=== PATIENT | female | born 1995 | race African-American/Black ===

== ENCOUNTER 2016-08-12 17:36 | Emergency (ER) | payer SELFPAY ==
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
[2016-08-12] MEDS ORDERED: Ondansetron ODT TAB* 4 MG PO ONE (18:35)
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
[2016-08-12] MEDS ORDERED: Ibuprofen TAB* 800 MG PO ONE (19:27)
[2016-08-12 20:27] VITALS: BP 155/84
== END 2016-08-12 20:20 | disposition home or self-care (01) ==
LOC: ED 17:36
DX: S16.1XXA Strain of muscle, fascia and tendon at neck level, initial encounter (principal); S06.0X9A Concussion with loss of consciousness of unspecified duration, initial encounter; V43.62XA Car passenger injured in collision with other type car in traffic accident, initial encounter; Y92.410 Unspecified street and highway as the place of occurrence of the external cause; J45.909 Unspecified asthma, uncomplicated
CPT/HCPCS: 70450; 72040; 99282; A9270-GY

== ENCOUNTER 2017-01-12 11:07 | Emergency (ER) | payer BC, OTHER ==
[2017-01-12 11:13] VITALS: BP 130/76
[2017-01-12] MEDS ORDERED: Ondansetron ODT TAB* 4 MG PO ONE (11:54)
--- NOTE | 2017-01-12 12:04 | UC ---
Ear Complaint HPI - HPI Summary HPI Summary: 21 yo female with the onset of right ear pressure, n& vomiting today mild sinus pressure has felt feverish/mild cough felt tight for about 20 minutes but did not have her inhaler - History of Current Complaint Chief Complaint: UCGeneralIllness Stated Complaint: VOMITING FEVER EAR PAIN SOB ASTHMA Time Seen by Provider: 01/12/17 11:45 Hx Obtained From: Patient Hx Last Menstrual Period: 12/23/16 Onset/Duration: Gradual Onset, Lasting Hours Severity Initially: Mild Severity Currently: Mild Pain Intensity: 4 Pain Scale Used: 0-10 Numeric Alleviating Factors: Nothing Associated Signs/Symptoms: Positive: URI Symptoms - Allergies/Home Medications Allergies/Adverse Reactions: Allergies Allergy/AdvReac Type Severity Reaction Status Date / Time Pollen Extract Allergy Intermediate Sneezing Verified 01/12/17 11:13 Dust Allergy Hives/Diff. Uncoded 01/12/17 11:13 Breathing/I tching PMH/Surg Hx/FS Hx/Imm Hx Respiratory History: Asthma Other History Of: Negative For: Anticoagulant Therapy - Surgical History Surgical History: None - Family History Known Family History: Positive: Cardiac Disease, Hypertension - Social History Alcohol Use: Occasionally Substance Use Type: None Smoking Status (MU): Never Smoked Tobacco Household Exposure Type: Cigarettes Review of Systems Constitutional: Negative Skin: Negative Eyes: Negative ENT: Ear Ache, Sinus Pain/Tenderness Respiratory: Shortness Of Breath - resolve Cardiovascular: Negative Gastrointestinal: Vomiting, Nausea Genitourinary: Negative Motor: Negative Neurovascular: Negative Musculoskeletal: Negative Neurological: Negative Psychological: Negative Is Patient Immunocompromised?: No All Other Systems Reviewed And Are Negative: Yes Physical Exam Triage Information Reviewed: Yes Appearance: Well-Appearing, No Pain Distress, Well-Nourished Vital Signs: Initial Vital Signs Temp 98.0 F 01/12/17 11:09 Pulse 90 01/12/17 11:09 Resp 20 01/12/17 11:09 BP 130/76 01/12/17 11:09 Pulse Ox 100 01/12/17 11:09 Eyes: Positive: Conjunctiva Clear ENT: Positive: Nasal congestion, Nasal drainage, TM bulging - R. Negative: Hearing grossly normal - decreased right, Pharyngeal erythema, Tonsillar swelling, Tonsillar exudate, Trismus, Muffled/hoarse voice Neck: Positive: Supple, Nontender, No Lymphadenopathy Respiratory: Positive: Lungs clear, Normal breath sounds, No respiratory distress Cardiovascular: Positive: RRR, No Murmur Musculoskeletal: Positive: ROM Intact, No Edema Neurological: Positive: Alert Psychological Exam: Normal Skin Exam: Normal Ear Complaint Course/Dx - Differential Dx/Diagnosis Provider Diagnoses: right serous otitis. nausea/vomiting. ?bronchospasm earlier- none at present Discharge - Discharge Plan Condition: Stable Disposition: HOME Prescriptions: Ondansetron TAB* [Zofran Tab*] 4 mg PO Q6H PRN #10 tab PRN Reason: Nausea Prednisone [Deltasone] 40 mg PO DAILY #10 tab Patient Education Materials: Acute Nausea and Vomiting (ED), Serous Otitis Media (ED) Forms: *Work Release Referrals: No Primary Care Phys,NOPCP [Primary Care Provider] - Additional Instructions: you may use your flonase recheck for new or worsening symptoms recheck in 3-4 days if not better
== END 2017-01-12 12:04 | disposition home or self-care (01) ==
LOC: UCEAST 11:07
DX: H65.91 Unspecified nonsuppurative otitis media, right ear (principal); R11.2 Nausea with vomiting, unspecified
CPT/HCPCS: 99212; A9270-GY; G0463

== ENCOUNTER 2017-01-14 10:28 | Emergency (ER) | payer BC ==
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
[2017-01-14] MEDS ORDERED: Albuterol 2.5 MG/3 ML NEB.SOL* (0.083%) INH ONE (12:13)
[2017-01-14 12:48] VITALS: BP 134/73
== END 2017-01-14 13:00 | disposition home or self-care (01) ==
LOC: UCEAST 10:28
DX: J98.01 Acute bronchospasm (principal); R06.02 Shortness of breath; Z77.22 Contact with and (suspected) exposure to environmental tobacco smoke (acute) (chronic)
CPT/HCPCS: 99212; G0463

== ENCOUNTER 2017-07-06 14:57 | Emergency (ER) | payer BC ==
[2017-07-06 15:06] VITALS: BP 146/94
--- NOTE | 2017-07-06 16:04 | RAD ---
HISTORY: Left lower quadrant pain, pelvic pain COMPARISONS: CT dated February 18, 2009 TECHNIQUE: Multiple transverse and longitudinal ultrasound images were obtained of the pelvis using grayscale, color Doppler, and spectral Doppler imaging using the endovaginal transducer. FINDINGS: UTERUS: The uterus measures 8.1 x 3.7 x 5 cm. The uterus is normal in shape, size, contour, and echotexture. ENDOMETRIUM: The endometrial stripe is smooth. The endometrium measures 1.4 cm in thickness. CUL-DE-SAC: There is small amount of free fluid along the fundus of the uterus. RIGHT OVARY: The right ovary measures 3.2 x 1.9 x 2.1 cm. Normal arterial and venous waveforms are identifiable within the ovary on spectral Doppler imaging. LEFT OVARY: The left ovary measures 3.3 x 1.6 x 2.1 cm. Normal arterial and venous waveforms are identifiable within the ovary on spectral Doppler imaging. BLADDER: The bladder is not well visualized. OTHER: None IMPRESSION: 1. NO SONOGRAPHIC FEATURES OF TORSION. PLEASE NOTE THAT PARTIAL OR INTERMITTENT TORSION MAY BE SONOGRAPHICALLY NORMAL. 2. SMALL AMOUNT OF FREE FLUID WITHIN THE PELVIS.
--- NOTE | 2017-07-06 16:48 | RAD ---
Indication: Left lower quadrant pain. CT of the abdomen and pelvis was performed without oral or IV contrast administration. Coronal and sagittal reconstructed images were obtained. Lung bases demonstrate no pleural fluid, nodules or masses. Heart demonstrates no pericardial effusion. The liver is normal in size. No focal lesions or intrahepatic duct dilatation is noted. The gallbladder demonstrates no calcified gallstones. The pancreas demonstrates no mass or pancreatic ductal dilatation. The spleen is normal in size. No adrenal masses are noted. The kidneys demonstrates no hydronephrosis in either kidney. No retroperitoneal lymphadenopathy is noted. CT of the pelvis demonstrates stool throughout the colon. No dilated loops of bowel are noted. No hernia is noted. Aorta and inferior vena cava are unremarkable. No pelvic adenopathy is noted. The bony structures are otherwise unremarkable. IMPRESSION: No abnormal masses or fluid collections are identified. No evidence of obstructive uropathy is noted. No abnormal masses are identified.
--- NOTE | 2017-07-06 19:03 | UC ---
Jaquan Gilbert Nilda, scribed for Saw Hanson MD on 07/06/17 at 1538 . Complaint Female HPI - HPI Summary HPI Summary: This patient is a 22 year old F presenting [place] [facility] [place] friend with a chief complaint of intermittent moderate abd pain (L-sided more than R-sided) for the past month. The patient rates the pain 6/10 in severity. Symptoms alleviated by copious ibuprofen. Patient reports chills, nausea, and COOK. She denies constipation, V/D, dysuria, burning with urination, abnormal vaginal discharge, and loss of appetite. She states pain worsened after taking a course of control to regulate her periods. Pt states she discontinued the control treatment last month due to pain. Pt notes she currently does not have PCP and has been obtaining services from [facility]. PMHx of ovarian cysts which was seen via US 3 years ago. Pt denies PSHx. - History Of Current Complaint Chief Complaint: UCAbdominalPain Stated Complaint: SIDE ABDOMINAL PAIN Time Seen by Provider: 07/06/17 15:10 Hx Obtained From: Patient Hx Last Menstrual Period: 3 wks ago Onset/Duration: Lasting Weeks, Still Present Timing: Intermittent Severity Currently: Moderate Pain Intensity: 6 Pain Scale Used: 0-10 Numeric Aggravating Factor(s): Other - control Alleviating Factor(s): Meds - ibuprofen Associated Signs And Symptoms: Positive: Nausea. Negative: Vaginal Discharge, Vomiting(# Of Episodes =) - Allergies/Home Medications Allergies/Adverse Reactions: Allergies Allergy/AdvReac Type Severity Reaction Status Date / Time Dust Allergy Hives/Diff. Uncoded 07/06/17 15:07 Breathing/I tching PMH/Surg Hx/FS Hx/Imm Hx Respiratory History: Asthma GI/ History: Other Other GI/ History: Ovarian Cyst (2 years ago) Other History Of: Negative For: Anticoagulant Therapy - Surgical History Surgical History: None - Family History Known Family History: Positive: Cardiac Disease, Hypertension - Social History Alcohol Use: Occasionally Substance Use Type: None Smoking Status (MU): Never Smoked Tobacco Household Exposure Type: Cigarettes Review of Systems Constitutional: Chills Gastrointestinal: Abdominal Pain - R-sided and L-sided, Nausea, Other - negative loss of appetite, constipation, vomiting, and diarrhea Genitourinary: Other - negative burning with urination, dysuria, abnormal vaginal discharge Neurological: Headache All Other Systems Reviewed And Are Negative: Yes Physical Exam - Summary Physical Exam Summary: General: well-appearing, no pain distress Skin: warm, color reflects adequate perfusion, dry Head: normal Eyes: EOMI, DYAN ENT: normal Neck: supple, nontender Respiratory: CTA, breath sounds present Cardiovascular: RRR Abdomen: soft, tender LLQ Bowel: present Musculoskeletal: normal, strength/ROM intact Neurological: normal, sensory/motor intact, A&O x3 Psychological: affect/mood appropriate Triage Information Reviewed: Yes Vital Signs: Initial Vital Signs Temp 98.3 F 07/06/17 15:03 Pulse 89 07/06/17 15:03 Resp 12 07/06/17 15:03 BP 146/94 07/06/17 15:03 Pulse Ox 99 07/06/17 15:03 Vital Signs Reviewed: Yes Diagnostics - Radiology CT Abd/Pel Radiology Interpretation Completed By: Radiologist - CT Abd/Pel, per radiologist , reveals no abnormal masses or fluid collections are identified. No evidence of obstructive uropathy is noted. No abnormal masses are identified. Dr. Hanson has reviewed this report. US Pelvic Radiology Interpretation Completed By: Radiologist - US Pelvic, per radiologist , reveals 1. NO SONOGRAPHIC FEATURES OF TORSION. PLEASE NOTE THAT PARTIAL OR INTERMITTENT TORSION MAY BE SONOGRAPHICALLY NORMAL. 2. SMALL AMOUNT OF FREE FLUID WITHIN THE PELVIS. Dr. Hanson has reviewed this report. Re-Evaluation - Re-Evaluation First Eval Re-Evaluation Time: 16:49 Comment: Reviewed imaging results and D/C plan w pt. Complaint Female Dx - Course Course Of Treatment: CT Abd/Pel, per radiologist, reveals no abnormal masses or fluid collections are identified. No evidence of obstructive uropathy is noted. No abnormal masses are identified. Dr. Hanson has reviewed this report. US Pelvic, per radiologist, reveals. 1. NO SONOGRAPHIC FEATURES OF TORSION. PLEASE NOTE THAT PARTIAL OR INTERMITTENT TORSION. MAY BE SONOGRAPHICALLY NORMAL. 2. SMALL AMOUNT OF FREE FLUID WITHIN THE PELVIS. Dr. Hanson has reviewed this report. Medications reviewed. Allergies noted. BP noted and advised to follow up with PCP. DISCUSSED RESULTS WITH PATIENT. F/U PMD/OBGYN; REEVAL HERE OR ED IF WORSE. - Differential Dx/Diagnosis Provider Diagnoses: LEFT SIDED ABDOMINAL/PELVIC PAIN. elevated BP without dx of HTN Discharge - Discharge Plan Condition: Stable Disposition: HOME Patient Education Materials: Pelvic Pain in Women (ED), Abdominal Pain (ED) Referrals: [facility] [Provider Group] [facility] PHYS[facility]IAN REFERRAL [Outside] Additional Instructions: FOLLOW UP WITH YOUR PRIMARY CARE [facility], [phone]. GO TO THE EMERGENCY DEPARTMENT FOR ANY WORSENING OF YOUR CONDITION OR QUESTIONS OR CONCERNS. YOUR BLOOD PRESSURE WAS ELEVATED TODAY; FOLLOW UP WITH YOUR PRIMARY CARE DOCTOR WITHIN ONE WEEK. The documentation as recorded by the Jaquan hughes Nilda accurately reflects the service I personally performed and the decisions made by me, Saw Hanson MD.
[2017-07-08 18:33] LABS: ABS Basophils 0 10^3/ul (0-0.2); ABS Eosinophils 0.1 10^3/ul (0-0.6); ABS Lymphocytes 1.9 10^3/ul (1.0-4.8); ABS Monocytes 0.6 10^3/ul (0-0.8); ABS Neutrophils 5.8 10^3/ul (1.5-7.7); ABS Nucleated RBC 0 10^3/ul; Eosinophil % 1.1 % (0-6); Hematocrit 32 % (35-47); Hemoglobin 10.8 g/dl (12.0-16.0); Lymphocyte % 22.4 % (25-47); Mean Corpuscular HGB Conc 33 g/dl (31-36); Mean Corpuscular Hemoglobin 27 pg (27-31); Mean Corpuscular Volume 82 fL (80-97); Mean Platelet Volume 10 um3 (7.4-10.4); Nucleated Red Blood Cells % 0; Platelet Count 196 10^3/ul (150-450); Red Blood Count 3.95 10^6/ul (4.0-5.4); Red Cell Distribution Width 14 % (10.5-15); White Blood Count 8.4 10^3/ul (3.5-10.8)
== END 2017-07-06 17:12 | disposition home or self-care (01) ==
LOC: UCEAST 14:57
DX: R10.9 Unspecified abdominal pain (principal); R10.2 Pelvic and perineal pain; R03.0 Elevated blood-pressure reading, without diagnosis of hypertension; J45.909 Unspecified asthma, uncomplicated
CPT/HCPCS: 36415; 74176; 76830; 80053; 81003; 83690; 84702; 85025; 86140; 99211; G0463

== ENCOUNTER 2017-09-10 12:51 | Emergency (ER) | payer BC, OTHER ==
[2017-09-10 13:11] VITALS: BP 136/76
[2017-09-10] MEDS ORDERED: Ibuprofen TAB* 800 MG PO ONE (13:16)
[2017-09-10] MEDS ORDERED: Acetaminophen TAB* 325 MG PO ONE (13:24)
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
== END 2017-09-10 14:23 | disposition home or self-care (01) ==
LOC: UCEAST 12:51
DX: S93.401A Sprain of unspecified ligament of right ankle, initial encounter (principal); Y04.0XXA Assault by unarmed brawl or fight, initial encounter; Y93.9 Activity, unspecified; Y92.219 Unspecified school as the place of occurrence of the external cause; Y99.0 Civilian activity done for income or pay; J45.909 Unspecified asthma, uncomplicated; Z87.820 Personal history of traumatic brain injury
CPT/HCPCS: 84702; 99212; A9270-GY; G0463

== ENCOUNTER 2018-02-01 14:09 | Emergency (ER) | payer BC ==
--- NOTE | 2018-02-01 14:50 | ED ---
Lower Extremity - HPI Summary HPI Summary: A 22 y/o F, who is 23 weeks with her first child, presents to ED with c /o bilat LE numbness onset five days ago. The numbness is described as "tingling " and "pinching." She denies trauma. Associated sx: back pain. The back pain is rated as 5 out of 10. Denies fever, chills, urinary and bowel sx. She saw her OB-CHAIN TESTING MACHINE OPERATOR three days ago who told her to monitor the numbness. Today at work, pt lost her balance and fell onto her knees. - History of Current Complaint Chief Complaint: EDExtremityLower Stated Complaint: LEG NUMBNESS Time Seen by Provider: 02/01/18 14:33 Hx Obtained From: Patient Hx Last Menstrual Period: 08/20/2017 Onset of Pain: Days Onset/Duration: Still Present Severity Initially: Mild Severity Currently: Mild Pain Intensity: 0 Pain Scale Used: 0-10 Numeric Timing: Constant Location: Is Discrete @ - bilat LE Associated Signs And Symptoms: Positive: Other - back pain. Negative: Fever - Allergies/Home Medications Allergies/Adverse Reactions: Allergies Allergy/AdvReac Type Severity Reaction Status Date / Time Dust Allergy Hives/Diff. Uncoded 02/01/18 14:42 Breathing/I tching PMH/Surg Hx/FS Hx/Imm Hx Previously Healthy: Yes Endocrine/Hematology History: Denies: Hx Anticoagulant Therapy, Hx Blood Disorders, Hx Diabetes, Hx Thyroid Disease, Hx Unexplained Bleeding Cardiovascular History: Denies: Hx Hypertension Respiratory History: Reports: Hx Asthma, Hx Sleep Apnea Denies: Hx Chronic Obstructive Pulmonary Disease (COPD), Other Respiratory Problems/Disorders GI History: Denies: Hx Ulcer Musculoskeletal History: Reports: Other Musculoskeletal History - lumbar herniated disc Neurological History: Reports: Other Neuro Impairments/Disorders - concussions x 4 - Immunization History Date of Tetanus Vaccine: 2014 Date of Influenza Vaccine: 2013 Immunizations Up to Date: Yes Infectious Disease History: No Infectious Disease History: Denies: Hx Clostridium Difficile, Hx Hepatitis, Hx Human Immunodeficiency Virus (HIV), Hx of Known/Suspected MRSA, Hx Shingles, Hx Tuberculosis, Hx Known/ Suspected VRE, Hx Known/Suspected VRSA, History Other Infectious Disease, Traveled Outside the [place] in Last 30 Days - Family History Known Family History: Positive: Cardiac Disease, Hypertension - Social History Occupation: Employed Full-time Lives: With Family Alcohol Use: Occasionally Hx Substance Use: No Substance Use Type: Reports: None Hx Tobacco Use: No Smoking Status (MU): Never Smoked Tobacco Review of Systems Negative: Fever Negative: Cough Musculoskeletal: Other - pos: back pain Positive: Numbness - bilat LE All Other Systems Reviewed And Are Negative: Yes Physical Exam - Summary Physical Exam Summary: VITAL SIGNS: Reviewed. GENERAL: Patient is a well-developed and nourished FEMALE who is lying comfortable in the stretcher. Patient is not in any acute respiratory distress. HEAD AND FACE: No signs of trauma. No ecchymosis, hematomas or skull depressions. No sinus tenderness. EYES: PERRLA, EOMI x 2, No injected conjunctiva, no nystagmus. EARS: Hearing grossly intact. Ear canals and tympanic membranes are within normal limits. MOUTH: Oropharynx within normal limits. NECK: Supple, trachea is midline, no adenopathy, no JVD, no carotid bruit, no c- spine tenderness, neck with full ROM. CHEST: Symmetric, no tenderness at palpation LUNGS: Clear to auscultation bilaterally. No wheezing or crackles. CVS: Regular rate and rhythm, S1 and S2 present, no murmurs or gallops appreciated. Good capillary refill. ABDOMEN: Soft, non-tender. No signs of distention. No rebound, no guarding, and no masses palpated. Bowel sounds are normal. 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 Good sphincter tone. No hemorrhoids. EXTREMITIES: FROM in all major joints, no edema, no cyanosis or clubbing. Good tendon reflexes. Good sensation. NEURO: Alert and oriented x 3. No acute neurological deficits. Speech is normal and follows commands. SKIN: Dry and warm Triage Information Reviewed: Yes Vital Signs On Initial Exam: Initial Vitals Temp Pulse Resp BP Pulse Ox 99.4 F 96 16 130/73 100 02/01/18 14:37 02/01/18 14:37 02/01/18 14:37 02/01/18 14:37 02/01/18 14:37 Vital Signs Reviewed: Yes Diagnostics - Vital Signs Vital Signs Temp Pulse Resp BP Pulse Ox 02/01/18 14:37 99.4 F 96 16 130/73 100 - Laboratory Result Diagrams: 02/01/18 15:53 02/01/18 15:53 Lab Statement: Any lab studies that have been ordered have been reviewed, and results considered in the medical decision making process. Re-Evaluation - Re-Evaluation 1 Re-Evaluation Time: 15:26 Change: Unchanged Comment: Telling pt that the neuro consult may be a little while and she stated that is OK. 2 Re-Evaluation Time: 17:31 Change: Unchanged Comment: Discussing Dr. Lemon's recommendations and plans for dispo. Lower Extremity Course/Dx - Course Assessment/Plan: A 22 y/o F, who is 23 weeks with her first child, presents to ED with c/o bilat LE numbness onset five days ago. The numbness is described as "tingling" and "pinching." She denies trauma. Associated sx: back pain. The back pain is rated as 5 out of 10. Denies fever, chills, urinary and bowel sx. She saw her OB-CHAIN TESTING MACHINE OPERATOR three days ago who told her to monitor the numbness. Today at work, pt lost her balance and fell onto her knees. Blood work without any significant abnormality except for hemoglobin 11.1 hematocrit 34. My physical exam did not show any deep tendon reflex abnormality, the patient has good pulses good capillary refill, she has good sensation and good strength. However because the patient is complaining of back pain and she is I discussed my physical exam and findings with Dr. Lemon from neurology who agreed to consult for this patient. That his examination assessment and review of the lab tests he doesn't recommend any made images at this point because the patient's physical exam was not abnormal. And since the patient is he doesn't recommend any images at this point. He discussed the benefits and risks of admitted the patient to the hospital for observation and the patient declined admission. She prefers to follow up with the primary care physician and Percocet as an outpatient setting. Therefore the patient will be discharged home with follow-up with primary care physician. She was given instructions to return to the emergency department if she develops any weakness, dropfoot, increasing back pain, or any other symptoms. The patient understands and agrees. - Diagnoses Differential Diagnosis/HQI/PQRI: Positive: Compartment Syndrome, Sciatica, Sprain, Strain Provider Diagnoses: Radiculopathy, Neuropathy - Physician Notifications Discussed Care Of Patient With: Oleksandr Lemon - neuro Time Discussed With Above Provider: 15:20 Instructed by Provider To: MD Will See In ED - Recommends no imaging due to at this point. At 1700, Dr. Lemon recommends that pt be D/C and follow up at his office. He does not recommend imaging at this point. Discharge - Sign-Out/Discharge Documenting (check all that apply): Patient Departure - DC - Discharge Plan Condition: Stable Disposition: HOME Patient Education Materials: Lumbar Radiculopathy (ED) Forms: *Work Release Referrals: Oleksandr Lemon MD [Medical Doctor] - 2 Days Joce Arguelles MD [Primary Care Provider] - 2 Days Additional Instructions: Establish with Dr. Lemon, neuro, within 2-3 days. Follow up with your primary care provider in 2-3 days. Please return to the Emergency Department if you experience new or worsening symptoms. - Billing Disposition and Condition Condition: STABLE Disposition: Home - Attestation Statements Document Initiated by Scribe: Yes Documenting Scribe: Sunny Covington Provider For Whom Scribe is Documenting (Include Credential): Dr. Joce Last MD Scribe Attestation: I, Sunny Covington, scribed for Dr. Joce Last MD on 02/02/18 at 1824. Scribe Documentation Reviewed: Yes Provider Attestation: The documentation as recorded by the Sunny hughes accurately reflects the service I personally performed and the decisions made by me, Dr. Joce Last MD
[2018-02-01 15:47] LABS: Urine Appearance Cloudy; Urine Blood Negative (Negative); Urine Color Yellow; Urine Ketones Negative (Negative); Urine Protein Negative (Negative); Urine Specific Gravity 1.008 (1.010-1.030); Urine Urobilinogen Negative (Negative)
[2018-02-01 16:17] LABS: ABS Basophils 0 10^3/ul (0-0.2); ABS Eosinophils 0.1 10^3/ul (0-0.6); ABS Lymphocytes 1.5 10^3/ul (1.0-4.8); ABS Monocytes 0.7 10^3/ul (0-0.8); ABS Neutrophils 9.1 10^3/ul (1.5-7.7); ABS Nucleated RBC 0 10^3/ul; Eosinophil % 0.5 % (0-6); Hematocrit 34 % (35-47); Hemoglobin 11.1 g/dl (12.0-16.0); Lymphocyte % 12.8 % (25-47); Mean Corpuscular HGB Conc 33 g/dl (31-36); Mean Corpuscular Hemoglobin 30 pg (27-31); Mean Corpuscular Volume 91 fL (80-97); Mean Platelet Volume 9.6 um3 (7.4-10.4); Nucleated Red Blood Cells % 0.1; Platelet Count 164 10^3/ul (150-450); Red Cell Distribution Width 14 % (10.5-15); White Blood Count 11.4 10^3/ul (3.5-10.8)
[2018-02-01 16:35] LABS: EGFR Non-African American 121.5 (>60)
[2018-02-01 17:35] VITALS: BP 130/78
--- NOTE | 2018-02-01 22:06 | CONS ---
NEUROLOGY CONSULTATION REPORT: DATE OF CONSULT: 02/01/18 - EMERGENCY DEPT. CONSULTING PROVIDER: Dr. Last. REASON FOR CONSULT: Low back pain and bilateral lower extremity numbness. CHIEF COMPLAINT: Right more than left leg numbness. HISTORY OF PRESENT ILLNESS: Ms. Frieda Nieto is a 22-year-old left-handed female, who is 23 weeks into her first , who stated that she has had a 1-week history of numbness from the waist down. Today at work, the patient stated that her legs went suddenly numb and had to kneel down to the ground. Certain back movements can trigger the numbness. If she gets up and walks around, the numbness gets worse. She did not hit her head or lose consciousness. Since last Thursday, she has had intermittent leg tingling and numbness sensation, which can affect different areas of the legs. She denied any weakness. She denied any bowel or bladder impairment. She denied any upper extremity symptoms. She denied any recent GI illnesses. She did receive the flu shot last Thursday, but the symptoms started prior to the flu shot. The patient also began having back pain at 18 weeks during her . The pain is achy, constant, stays in the back, Tylenol does not work. She has not had any imaging studies. The patient denied any focal weakness or paresthesias. She denied any headaches , visual disturbance, swallowing difficulty. PAST MEDICAL HISTORY: Asthma. PAST SURGICAL HISTORY: None. MEDICATIONS: Albuterol inhaler as needed. ALLERGIES: APPLES, BANANA, POLLEN, and DUST. FAMILY HISTORY: Her father had multiple knee surgeries. Mother is healthy. SOCIAL HISTORY: She denied any tobacco or alcohol use. 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 REVIEW OF SYSTEMS: A 14-point review of systems was otherwise negative except for what was mentioned in the HPI. PHYSICAL EXAM: Vitals: Temperature of 99.4, pulse rate 95, oxygen saturation of 100, blood pressure 149/82. General Examination: The patient is resting comfortably, laughing with examiner and her mother, who is at bedside. She does not appear in any acute distress. Dr. Last reported that he has done a rectal examination, which her rectal tone is normal. Head is normocephalic, atraumatic. Spurling sign negative. Eyes: Conjunctivae/corneas are clear. Neck is supple and symmetrical with no carotid bruits. Lungs are clear to auscultation bilaterally, nonlabored breathing. Cardiovascular: Regular rate and rhythm with normal S1, S2. Extremities: Normal range of motion with no cyanosis. Skin: No skin lesions or laceration. Psych: Affect is broad and normal mood. She is easy to establish rapport. Neurological Examination: Mental status; awake, alert, oriented to person, place and time, and general circumstance. Speech and language including expression, naming, and repetition were all assessed and found to be normal. Cranial nerves: Normal confrontation testing bilaterally. Pupils are mid range and reactive to light. Normal consensual response. Sensation is intact on the forehead, cheeks, and jaw region bilaterally. She has no facial droop. She is able to hear throughout the history process, symmetrical palate elevation. Normal strength against resistance. Tongue is symmetrical and midline with no atrophy or fasciculation. Motor Examination: No abnormal movement, no pronator drift. Normal bulk and tone throughout. No fasciculation. Neck extension is 5. Shoulder range of motion is full. Shoulder abduction, elbow extension, and wrist flexion and extension, finger flexion and extension, and abduction, hip flexion, abduction, knee flexion and extension, ankle dorsiflexion, plantar flexion, great toe extensions are 5/5 bilaterally. Reflexes, Right/Left: Brachioradialis 2/2, biceps 2/2, triceps 2/2, patella 1/2, ankle 1/2, plantar flexor/flexor. Sensation is reduced to light touch and pinprick on the posterior aspect of the right leg on the calf and the hamstring region when compared to the left. She has normal vibratory sensation 15 seconds on the right, 16 seconds on the left, and proprioception at the great toes. Coordination: Normal [id number] and rapid alternating movement. Gait: Wide-based, no ataxia. The patient has lumbar lordosis when ambulating. DIAGNOSTIC STUDIES/LAB DATA: Labs: WBC of 11,000, hemoglobin of 11, hematocrit 34%. Sodium 136, potassium 4.0, chloride 106, carbon dioxide 23, calcium 9.2, C- reactive protein is 10.5. Urinalysis is unremarkable with no evidence of pyuria. ASSESSMENT AND PLAN: This is a pleasant 22-year-old female who is 23 weeks female, who presented with chronic low back pain and subacute numbness of the lower extremity. Her numbness is patchy and is mostly in a distribution of the sciatic nerve on the right. I suspect the patient has low back pain and possible lumbosacral radiculopathy, which is a common symptom during . Contributing factors include exaggerated lumbar lordosis and postural stress on direct pressure from the growing uterus, as she informed me today that her uterus size is at 26 weeks rather than actually 23 weeks. I recommend conservative management with analgesics, possible physical therapy, heating at the low back, and modification of activity. I do not suspect the patient has GBS given the lack of asymmetrical ascending paresthesias given, symptoms are triggered with symptoms, and she has retained reflexes in the lower extremity. She has no focal motor weakness. I did inform the patient that if she continues to have symptoms and it is getting worse or she develops any weakness, she should come back to the ER immediately for further evaluation. If she does return, we can do MRIs of the lumbar spine to evaluate for disk herniation at L5-S1 level as well as we can do an EMG/nerve conduction study. The patient is not interested in any analgesics or steroids, and I agreed with her given that she is . She will take off from work for a few days until her back and the symptoms recover. TIME SPENT: I spent a total of 70 minutes of which more than 50% was spent obtaining history, reviewing the medical chart, examining the patient, and discussing the treatment plan and prognosis as mentioned above. [id number]/CPS #: [id number] MTDD
== END 2018-02-01 17:34 | disposition home or self-care (01) ==
LOC: ED 14:09
DX: M54.10 Radiculopathy, site unspecified (principal); G62.9 Polyneuropathy, unspecified; M54.9 Dorsalgia, unspecified
CPT/HCPCS: 36415; 80053; 81003; 82607; 84443; 85025; 86140; 99283

== ENCOUNTER 2018-03-08 16:08 | Emergency (ER) | payer BC ==
[2018-03-08 18:18] LABS: ABS Basophils 0 10^3/ul (0-0.2); ABS Eosinophils 0.1 10^3/ul (0-0.6); ABS Lymphocytes 1.4 10^3/ul (1.0-4.8); ABS Monocytes 0.7 10^3/ul (0-0.8); ABS Neutrophils 7.8 10^3/ul (1.5-7.7); ABS Nucleated RBC 0 10^3/ul; Eosinophil % 0.9 % (0-6); Hematocrit 32 % (35-47); Hemoglobin 11.1 g/dl (12.0-16.0); Lymphocyte % 14.2 % (25-47); Mean Corpuscular HGB Conc 35 g/dl (31-36); Mean Corpuscular Hemoglobin 31 pg (27-31); Mean Corpuscular Volume 90 fL (80-97); Mean Platelet Volume 9.6 fL (7.4-10.4); Nucleated Red Blood Cells % 0.1; Platelet Count 146 10^3/ul (150-450); Red Blood Count 3.57 10^6/ul (4.00-5.40); Red Cell Distribution Width 14 % (10.5-15)
[2018-03-08 18:29] LABS: EGFR Non-African American 123.9 (>60)
[2018-03-08 20:31] LABS: Urine Appearance Cloudy; Urine Blood Negative (Negative); Urine Color Amber; Urine Ketones Trace (Negative); Urine Protein Negative (Negative); Urine Red Blood Cell Absent (Absent); Urine Specific Gravity 1.015 (1.010-1.030); Urine Urobilinogen Negative (Negative); Urine White Blood Cell Trace(0-5/hpf) (Absent)
[2018-03-08] MEDS ORDERED: Morphine VIAL* 10 MG/ML 1 ML VIAL IM ONE (20:32)
[2018-03-08] MEDS ORDERED: Promethazine TAB* 25 MG PO ONE (20:33)
--- NOTE | 2018-03-08 20:37 | ED ---
Back Pain - HPI Summary HPI Summary: Patient 28.4 weeks complains of constant low back pain. Patient currently on full bedrest for past week due to position of daily affecting sciatic nerve. Placed on bedrest by RABBET OPERATOR and neurology. History of 2 falls due to legs giving out. Sent by RABBET OPERATOR a neurologist in the ED for evaluation. Back pain described as intermittent, sharp, achy, worse with lying down. Tylenol provides no relief, no denies heat or cold. Patient states 7/10 back pain. Denies any new trauma, fever, cough, sore throat, CP, SOB, N/V/D, abdominal pain, change in urine, change in BM. Medical history is asthma. - History of Current Complaint Chief Complaint: EDBackInjuryPain Stated Complaint: 32 WKS PREG/BACK PAIN Time Seen by Provider: 03/08/18 17:29 Hx Obtained From: Patient Hx Last Menstrual Period: 08/20/2017 Onset/Duration: Gradual Onset Onset/Duration: Started Days Ago Timing: Intermittent Back Pain Location: Is Discrete @ Severity Initially: Moderate Severity Currently: Moderate Pain Intensity: 7 Pain Scale Used: 0-10 Numeric Character: Sharp, Dull Aggravating Symptom(s): Movement, Walking Alleviating Symptom(s): Rest Associated Signs And Symptoms: Positive: Negative - Allergies/Home Medications Allergies/Adverse Reactions: Allergies Allergy/AdvReac Type Severity Reaction Status Date / Time environmental Allergy Hives/Diff. Uncoded 03/08/18 16:14 Breathing/I tching PMH/Surg Hx/FS Hx/Imm Hx Endocrine/Hematology History: Denies: Hx Anticoagulant Therapy, Hx Blood Disorders, Hx Diabetes, Hx Thyroid Disease, Hx Unexplained Bleeding Cardiovascular History: Denies: Hx Hypertension, Hx Pacemaker/ICD Respiratory History: Reports: Hx Asthma, Hx Sleep Apnea Denies: Hx Chronic Obstructive Pulmonary Disease (COPD), Other Respiratory Problems/Disorders GI History: Denies: Hx Ulcer Musculoskeletal History: Reports: Other Musculoskeletal History - lumbar herniated disc Sensory History: Denies: Hx Hearing Aid Neurological History: Reports: Other Neuro Impairments/Disorders - concussions x 4 Psychiatric History: Reports: Hx Panic Disorder - Immunization History Date of Tetanus Vaccine: 2014 Date of Influenza Vaccine: 2013 Infectious Disease History: No Infectious Disease History: Denies: Hx Clostridium Difficile, Hx Hepatitis, Hx Human Immunodeficiency Virus (HIV), Hx of Known/Suspected MRSA, Hx Shingles, Hx Tuberculosis, Hx Known/ Suspected VRE, Hx Known/Suspected VRSA, History Other Infectious Disease, Traveled Outside the [place] in Last 30 Days - Family History Known Family History: Positive: Cardiac Disease, Hypertension - Social History Alcohol Use: None Hx Substance Use: No Substance Use Type: Reports: None Hx Tobacco Use: No Smoking Status (MU): Never Smoked Tobacco Review of Systems Constitutional: Negative Eyes: Negative ENT: Negative Cardiovascular: Negative Respiratory: Negative Gastrointestinal: Negative Genitourinary: Negative Musculoskeletal: Other Skin: Negative Neurological: Negative Psychological: Normal All Other Systems Reviewed And Are Negative: Yes Physical Exam - Summary Physical Exam Summary: PMS intact distally on bilateral lower extremities. Normal motor function of bilateral lower extremities. Patient able to flex and extend of bilateral hips , bilateral knees and ankles. Extension against resistance normal. No pain with palpation of lower back. Triage Information Reviewed: Yes Vital Signs On Initial Exam: Initial Vitals Temp Pulse Resp BP Pulse Ox 98.5 F 96 16 159/77 99 03/08/18 16:10 03/08/18 16:10 03/08/18 16:10 03/08/18 16:10 03/08/18 16:10 Vital Signs Reviewed: Yes Appearance: Positive: Well-Appearing Skin: Positive: Warm Head/Face: Positive: Normal Head/Face Inspection Eyes: Positive: Normal Neck: Positive: Supple Respiratory/Lung Sounds: Positive: Clear to Auscultation Cardiovascular: Positive: Normal Abdomen Description: Positive: Nontender Musculoskeletal: Positive: Normal Neurological: Positive: Normal Psychiatric: Positive: Normal AVPU Assessment: Alert - Leslie Coma Scale Best Eye Response: 4 - Spontaneous Best Motor Response: 6 - Obeys Commands Best Verbal Response: 5 - Oriented Coma Scale Total: 15 Diagnostics - Vital Signs Vital Signs Temp Pulse Resp BP Pulse Ox 03/08/18 19:00 108 99 03/08/18 18:45 96 125/77 98 03/08/18 18:16 109 99 03/08/18 18:15 99 114/74 100 03/08/18 16:10 98.5 F 96 16 159/77 99 - Laboratory Lab Results: Lab Results 03/08/18 03/08/18 03/08/18 Range/Units 18:02 18:02 18:15 WBC 10.0 (3.5-10.8) 10^3/ul RBC 3.57 L (4.00-5.40) 10^6/ul Hgb 11.1 L (12.0-16.0) g/dl Hct 32 L (35-47) % MCV 90 (80-97) fL MCH 31 (27-31) pg MCHC 35 (31-36) g/dl RDW 14 (10.5-15) % Plt Count 146 L (150-450) 10^3/ul MPV 9.6 (7.4-10.4) fL Neut % (Auto) 77.9 (38-83) % Lymph % (Auto) 14.2 L (25-47) % [place] % (Auto) 6.7 (0-7) % Eos % (Auto) 0.9 (0-6) % Baso % (Auto) 0.3 (0-2) % Absolute Neuts (auto) 7.8 H (1.5-7.7) 10^3/ul Absolute Lymphs (auto) 1.4 (1.0-4.8) 10^3/ul Absolute Monos (auto) 0.7 (0-0.8) 10^3/ul Absolute Eos (auto) 0.1 (0-0.6) 10^3/ul Absolute Basos (auto) 0 (0-0.2) 10^3/ul Absolute Nucleated RBC 0 10^3/ul Nucleated RBC % 0.1 Sodium 135 (135-145) mmol/L Potassium 3.7 (3.5-5.0) mmol/L Chloride 106 (101-111) mmol/L Carbon Dioxide 23 (22-32) mmol/L Anion Gap 6 (2-11) mmol/L BUN 3 L (6-24) mg/dL Creatinine 0.60 (0.51-0.95) mg/dL Est GFR ( Amer) 149.9 (>60) Est GFR (Non-Af Amer) 123.9 (>60) BUN/Creatinine Ratio 5.0 L (8-20) Glucose 100 (70-100) mg/dL Calcium 9.0 (8.6-10.3) mg/dL Total Bilirubin 0.20 (0.2-1.0) mg/dL AST 11 L (13-39) U/L ALT 10 (7-52) U/L Alkaline Phosphatase 74 (34-104) U/L C-Reactive Protein 12.14 H (<8.01) mg/L Total Protein 6.1 L (6.4-8.9) g/dL Albumin 3.2 (3.2-5.2) g/dL Globulin 2.9 (2-4) g/dL Albumin/Globulin Ratio 1.1 (1-3) Urine Color [place] Urine Appearance Cloudy Urine pH 7.0 (5-9) Ur Specific [place] 1.015 (1.010-1.030) Urine Protein Negative (Negative) Urine Ketones Trace A (Negative) Urine Blood Negative (Negative) Urine Nitrate Negative (Negative) Urine Bilirubin Negative (Negative) Urine Urobilinogen Negative (Negative) Ur Leukocyte Esterase Trace A (Negative) Urine WBC (Auto) Trace(0-5/hpf) (Absent) Urine RBC (Auto) Absent (Absent) Ur Squamous Epith Cells Present A (Absent) Urine Bacteria Absent (Absent) Urine Glucose Negative (Negative) Result Diagrams: 03/08/18 18:02 03/08/18 18:02 Lab Statement: Any lab studies that have been ordered have been reviewed, and results considered in the medical decision making process. Back Pain Course/Dx - Course Course Of Treatment: Patient 28.4 weeks complains of constant low back pain. Patient currently on full bedrest for past week due to position of daily affecting sciatic nerve. Placed on bedrest by RABBET OPERATOR and neurology. History of 2 falls due to legs giving out. Sent by RABBET OPERATOR a neurologist in the ED for evaluation. Back pain described as intermittent, sharp, achy, worse with lying down. Tylenol provides no relief, no denies heat or cold. Patient states 7/10 back pain. Denies any new trauma, fever, cough, sore throat, CP, SOB, N/V/D, abdominal pain, change in urine, change in BM. Medical history is asthma. Physical exam: PMS intact distally on bilateral lower extremities. Normal motor function of bilateral lower extremities. Patient able to flex and extend of bilateral hips, bilateral knees and ankles. Extension against resistance normal. No pain with palpation of lower back. Refused narcotic pain medication. Neuro consult on 02/01/[address] Lemon recommended conservative management unless symptoms worsen. Note states that should patient symptoms worsen she should come to the ED for probably further evaluation and MRI of the L-spine. MRI of lumbar spine showed no acute changes. Upon hearing results Patient wanted to be discharged. - Diagnoses Provider Diagnoses: Back pain affecting Discharge - Sign-Out/Discharge Documenting (check all that apply): Patient Departure - Discharge Plan Condition: Stable Disposition: HOME Patient Education Materials: Acute Low Back Pain (ED), Lumbar Radiculopathy (ED ) Referrals: Joce Arguelles MD [Primary Care Provider] - Additional Instructions: Follow up with your RABBET OPERATOR and your neurologist. Return to the ED for any new or worsening symptoms - Billing Disposition and Condition Condition: STABLE Disposition: Home
[2018-03-08 20:50] VITALS: BP 125/81
== END 2018-03-08 20:49 | disposition home or self-care (01) ==
LOC: ED 16:08
DX: M54.5 Low back pain (principal); Z34.93 Encounter for supervision of normal pregnancy, unspecified, third trimester; Z3A.28 28 weeks gestation of pregnancy
CPT/HCPCS: 36415; 72148; 80053; 81003; 81015; 85025; 86140; 87086; 96372; 99282; J2270

== ENCOUNTER 2018-05-25 09:51 | Inpatient (IN) | payer BC ==
[2018-05-25] MEDS ORDERED: Buffered Lidocaine 1% SYRIN* 1 ML/SYRINGE INTRADERM ONE (10:17)
--- NOTE | 2018-05-25 10:22 | HP ---
General Information - Reason for Visit induction of labor, FT, polyhydramnios - General Information Maternal Age: 22 Grav: 2 Para: 0 - 0010 SAB: 1 IEA: 0 Estimated Due Date: 05/27/18 Determined By: LMP Maternal Blood Type and Rh: A Positive - Results this Serology/RPR Result: Non-Reactive Rubella Result: Immune HBsAg Result: Negative HIV Result: Negative GBS Culture Result: Negative Past Medical History Pertinent Past Medical History: See Records - bulging disc with bilateral leg numbness Pertinent Past Surgical History: None Pertinent Family History: See Records - HTN, high chol, blood clots, DM, Br CA - Antepartal Records Antepartal Records: Reviewed, Complicated by: - bilateral choroid plexus cysts; BMI 42, mild polyhydramnios Review of Systems Constitutional: Comfortable CV Complaint: No Respiratory: Shortness of Breath: No Gastrointestinal: No Nausea/Vomiting, Normal Bowel Movement Genitourinary: No Dysuria, No Bleeding, No Leaking Fluid Musculoskeletal: Contractions Neurological: No Headache, No Visual Changes Movement: Normal Exam Allergies/Adverse Reactions: Allergies metronidazole Allergy (Verified 05/20/18 20:18) Hives environmental Allergy (Uncoded 05/20/18 20:18) Hives/Diff.Breathing/Itching 141/83, P:103. O2:99% - Measurements Height: 6 ft Weight: 323 lb Body Mass Index (BMI): 43.8 Pre- Weight: 304 lb - Exam Breast: Breast Exam Deferred CVA: No CVA Tenderness Extremities: No Edema Heart: Normal Rhythm/Heart Sounds HEENT: No Significant Findings Lungs: Clear Bilaterally Rectal: Rectal Exam Deferred Reflexes: DTR 2+ Thyroid: No Thyromegaly - Abdominal Exam Abdomen Exam: Fundal Height Consistent with Dates - Ultrasound/Biophysical Profile Ultrasound Status: Not Done Targeted Exam Findings Estimated Weight: 9lbs Cervical Exam: 1cm Effacement: 60% Station: -2 Presenting Part: Vertex Membrane Status: Intact Bleeding/Discharge: None EFM Findings - External Monitor Findings Baseline Heart Rate: 145 External Monitor Findings: Accelerations Present, No Pattern of Variable or Late Decelerations, Variability Moderate, Baseline Stable Contractions: Regular, Mild, 45-90 Seconds Assessment/Plan - Assessment 23 y.o. polyhydramnios, FT - Obstetrical Risk Factors Obstetrical Risk Factors: Obesity Risk Factors Comment: polyhydramnios - Plan Plan: Induction - Date/Time of Admission Date of Admission: 05/25/18 Time of Admission: 10:30
[2018-05-25] MEDS: Lactated Ringers 1000 ML Bag* 1,000 ML IV ONE ×2 (11:34→11:35)
[2018-05-25 11:35] LABS: ABS Basophils 0 10^3/ul (0-0.2); ABS Eosinophils 0 10^3/ul (0-0.6); ABS Monocytes 0.5 10^3/ul (0-0.8); ABS Neutrophils 6.5 10^3/ul (1.5-7.7); ABS Nucleated RBC 0 10^3/ul; Eosinophil % 0.3 %; Hematocrit 33 % (35-47); Lymphocyte % 12.3 %; Mean Corpuscular HGB Conc 34 g/dl (31-36); Mean Corpuscular Hemoglobin 30 pg (27-31); Mean Corpuscular Volume 89 fL (80-97); Mean Platelet Volume 10.2 fL (7.4-10.4); Nucleated Red Blood Cells % 0; Platelet Count 143 10^3/ul (150-450); Red Blood Count 3.67 10^6/ul (4.00-5.40); Red Cell Distribution Width 14 % (10.5-15)
[2018-05-25] MEDS: Dinoprostone* 10 MG VAG.SUPP VAGINAL ONE ×2 (14:00→14:05)
[2018-05-26] MEDS ORDERED: Acetaminophen TAB* 325 MG PO ONE (05:17)
[2018-05-26] MEDS ORDERED: Acetaminophen TAB* 325 MG ONE (05:31)
--- NOTE | 2018-05-26 09:12 | PN ---
Progress Note - Progress Note Date of Service: 05/26/18 SOAP: Subjective: [Pt reports increase in pressure, discharge and contractions. +FM, -VB. Pt had headache overnight resolved with Tylenol. Objective: [BP:123/71, P:99, T:98.5, FHR: 145bpm, + accels, -decels, moderate variability, ctx q 2-3min. cervix: 4/80/-1, AROM clear copious.] Assessment: [23 y.o. , FT, polyhydramnios, induction of labor] Plan: [1) AROM 2) Ambulation 3) Anticipate vaginal delivery]
--- NOTE | 2018-05-26 15:40 | PN ---
Progress Note - Progress Note Date of Service: 05/26/18 SOAP: Subjective: [Pt reports contractions are about the same, denies increased discomfort or frequency. Reports +FM, +LOF, -VB.] Objective: [BP:133/82, P:118, T:97.5, FHR: ] Assessment: [23 y.o. , polyhydramnios, induction of labor at 39w6d EGA] Plan: [1) Pitocin augmentation 2) Position changes for descent 3) Therapeutic support and reevaluate in 2 hrs or sooner PRN]
--- NOTE | 2018-05-26 15:41 | PN ---
Progress Note - Progress Note Date of Service: 05/26/18 - addendum Note: FHR: 145bpm, + accels, -decels, moderate variability, ctx q 4-6
[2018-05-26] MEDS ORDERED: Oxytocin in LR* 20 UNITS/1,000 ML BAG IVPB SCH (16:00)
[2018-05-26] MEDS: Lactated Ringers 1000 ML Bag* 1,000 ML IV SCH ×4 (16:18→22:52)
[2018-05-26] MEDS ORDERED: Acetaminophen TAB* 325 MG PO PRN (19:51)
[2018-05-26] MEDS ORDERED: Gentamicin ADULT (*) 40 MG/ML VIAL (2 ML VIAL = 80 MG) IVPB ONE (19:59)
--- NOTE | 2018-05-26 20:14 | PN ---
Progress Note - Progress Note Date of Service: 05/26/18 SOAP: Subjective: [Pt reports contractions are more intense and closer together. Pt states she is feeling cold, and weak and tired. ] Objective: [BP:138/88, P:112, T102 oral, repeat after 30min 101.7 oral. FHR: 160bpm, +accels, + late decels, mild-moderate variability cervix: 6-7/80/-2] Assessment: [23 y.o. , suspected intra-amniotic infection, 39w 6days EGA, polyhydramnios] Plan: [1) Ampicillin and gentamycin 2) Tylenol 3) Position change and O2 started 4) Pitocin from 9mu to 4mu 5) Consult with Dr. Stoll]
[2018-05-26 20:46] LABS: Influenza A Molecular NEGATIVE (Negative); Influenza B Molecular NEGATIVE (Negative)
[2018-05-26] MEDS ORDERED: NS 0.9% IVPB ONE (21:00)
[2018-05-26] MEDS ORDERED: GENTAMICIN ADULT IVPB ONE (21:00)
[2018-05-26 21:02] LABS: ABS Basophils 0 10^3/ul (0-0.2); ABS Eosinophils 0 10^3/ul (0-0.6); ABS Lymphocytes 0.9 10^3/ul (1.0-4.8); ABS Monocytes 1.2 10^3/ul (0-0.8); ABS Neutrophils 11.7 10^3/ul (1.5-7.7); ABS Nucleated RBC 0 10^3/ul; Eosinophil % 0.1 %; Hematocrit 30 % (35-47); Hemoglobin 9.9 g/dl (12.0-16.0); Lymphocyte % 6.2 %; Mean Corpuscular HGB Conc 34 g/dl (31-36); Mean Corpuscular Hemoglobin 29 pg (27-31); Mean Corpuscular Volume 88 fL (80-97); Mean Platelet Volume 9.9 fL (7.4-10.4); Nucleated Red Blood Cells % 0; Platelet Count 119 10^3/ul (150-450); Red Blood Count 3.38 10^6/ul (4.00-5.40); Red Cell Distribution Width 14 % (10.5-15); White Blood Count 13.8 10^3/ul (3.5-10.8)
[2018-05-26] MEDS: Clindamycin 900 MG/D5W BAG(*) 900 MG/50 ML BAG IVPB SCH (21:41)
[2018-05-26] MEDS: Ampicillin ADVAN(*) 2 GM in NS 0.9% 100 ML* 100 ML IVPB SCH (22:27)
[2018-05-26] MEDS ORDERED: OBEPIDURAL* 250 ML EPIDURAL ONE (23:03)
[2018-05-26] MEDS ORDERED: fentaNYL* 50 MCG/ML 2 ML VIAL (100 MCG VIAL) ONE (23:25)
[2018-05-27] MEDS ORDERED: Lactated Ringers 1000 ML Bag* 500 ML IV PRN ×2 (00:21)
[2018-05-27] MEDS ORDERED: Phenylephrine IV* 40 MCG/ML 10 ML SYRINGE IV PUSH PRN ×2 (00:21)
[2018-05-27] MEDS ORDERED: Famotidine TAB* 20 MG PO PRN (00:21)
[2018-05-27] MEDS ORDERED: Lactated Ringers 1000 ML Bag* 1,000 ML IV ONE (00:21)
[2018-05-27] MEDS ORDERED: Sodium Citrate/Citric Acid* 15 ML UDC PO PRN (00:21)
[2018-05-27] MEDS ORDERED: OBEPIDURAL* 250 ML EPIDURAL SCH (01:00)
[2018-05-27] MEDS ORDERED: Lactated Ringers 1000 ML Bag* 1,000 ML IV SCH ×2 (01:00→02:00)
[2018-05-27] MEDS ORDERED: Chloroprocaine 3%* 20 ML VIAL ONE (01:05)
[2018-05-27] MEDS ORDERED: OXYTOCIN* 10 UNITS/ML 1 ML VIAL ONE (01:05)
[2018-05-27] MEDS ORDERED: ceFOXitin 2 GM IVPREMIX* 2 GM/50 ML BAG IVPB ONE (01:11)
[2018-05-27] MEDS ORDERED: ceFAZolin 2 GM PREMIX in ORs 0 GM/0 ML BAG IVPB ONE (01:12)
[2018-05-27] MEDS ORDERED: Sodium Citrate/Citric Acid* 15 ML UDC ONE (01:12)
[2018-05-27] MEDS ORDERED: Sodium Citrate/Citric Acid* 15 ML UDC PO ONE (01:12)
[2018-05-27] MEDS ORDERED: Acetaminophen TAB* 325 MG PO PRN ×3 (01:13→18:12)
[2018-05-27] MEDS ORDERED: Ibuprofen TAB* 600 MG PO PRN (01:13)
[2018-05-27] MEDS ORDERED: Dibucaine 1% 28.35 GM TUBE PR PRN (01:13)
[2018-05-27] MEDS ORDERED: oxyCODONE/Acetamin 5/325 MG* TAB PO PRN ×3 (01:13→18:12)
[2018-05-27] MEDS ORDERED: Glycerin ADULT SUPP PR PRN (01:13)
[2018-05-27] MEDS ORDERED: Witch Hazel PAD* JAR TOPICAL PRN (01:13)
[2018-05-27] MEDS ORDERED: fentaNYL* 50 MCG/ML 2 ML VIAL (100 MCG VIAL) ONE (01:43)
[2018-05-27] MEDS ORDERED: ROPIVACAINE 5 MG/ML 30 ML BTL (0.5%) ONE (01:43)
[2018-05-27] MEDS ORDERED: Famotidine IV* 10 MG/ML 2 ML (20 mg) ONE (01:43)
[2018-05-27] MEDS ORDERED: Oxytocin in LR* 20 UNITS/1,000 ML BAG IVPB SCH (02:00)
[2018-05-27] MEDS ORDERED: Acetaminophen IV 1GM/100ML * 100 ML ONE (02:02)
[2018-05-27] MEDS ORDERED: Ketorolac INJ* 30 MG/ML 1 ML VIAL ONE (02:05)
[2018-05-27] MEDS ORDERED: Morphine PF AMP (0.5MG/ML)* 5 MG/10 ML AMP ONE (02:07)
[2018-05-27] MEDS ORDERED: Naloxone* 0.4 MG/ML 1 ML VIAL IV PRN ×2 (02:17→02:18)
[2018-05-27] MEDS ORDERED: Levalbuterol 0.63MG/3ML NEB* UNIT OF USE INH PRN (02:17)
[2018-05-27] MEDS ORDERED: diPHENhydraMINE IV* 50 MG/ML 1 ml VIAL (BENADRYL) IV PRN (02:18)
[2018-05-27] MEDS ORDERED: Nalbuphine* 10 MG/ML 1 ML VIAL IV PRN (02:18)
[2018-05-27] MEDS ORDERED: HYDROcodone/ACETAMIN 5-325 MG* 1 TAB PO PRN ×2 (02:18)
[2018-05-27] MEDS ORDERED: PROCHLORPERAZINE INJ 5 MG/ML 2 ML VIAL IV PRN (02:18)
[2018-05-27] MEDS ORDERED: Ondansetron INJ* 2 MG/ML VIAL IV PRN (02:18)
[2018-05-27] MEDS ORDERED: DiMENhydriNATE IV* 50 MG/ML VIAL IV PUSH PRN (02:18)
[2018-05-27] MEDS ORDERED: Gentamicin ADULT per pharmacy 1 NOTE MISC FOLLOW UP PRN (03:59)
[2018-05-27] MEDS: Ampicillin ADVAN(*) 2 GM in NS 0.9% 100 ML* 100 ML IVPB SCH ×6 (04:41→23:18)
[2018-05-27] MEDS: Clindamycin 900 MG/D5W BAG(*) 900 MG/50 ML BAG IVPB SCH ×3 (06:03→22:25)
[2018-05-27 07:36] LABS: ABS Basophils 0 10^3/ul (0-0.2); ABS Eosinophils 0 10^3/ul (0-0.6); ABS Lymphocytes 0.7 10^3/ul (1.0-4.8); ABS Monocytes 1.3 10^3/ul (0-0.8); ABS Neutrophils 11.9 10^3/ul (1.5-7.7); ABS Nucleated RBC 0 10^3/ul; Eosinophil % 0 %; Hematocrit 28 % (35-47); Hemoglobin 9.3 g/dl (12.0-16.0); Lymphocyte % 4.9 %; Mean Corpuscular HGB Conc 33 g/dl (31-36); Mean Corpuscular Hemoglobin 29 pg (27-31); Mean Corpuscular Volume 88 fL (80-97); Mean Platelet Volume 9.8 fL (7.4-10.4); Nucleated Red Blood Cells % 0; Platelet Count 103 10^3/ul (150-450); Red Cell Distribution Width 14 % (10.5-15); White Blood Count 13.8 10^3/ul (3.5-10.8)
[2018-05-27 07:51] LABS: EGFR African American 151.5 (>60); EGFR Non-African American 125.2 (>60)
[2018-05-27] MEDS: Prenatal Vitamin TAB PO SCH (08:45)
[2018-05-27] MEDS: Simethicone TAB* 80 MG TAB.CHEW PO SCH ×4 (08:45→21:08)
[2018-05-27] MEDS: Docusate CAP* 100 MG PO SCH ×3 (08:45→21:08)
[2018-05-27] MEDS: Ferrous Gluconate TAB* 324 MG TAB PO SCH ×2 (09:10→21:08)
[2018-05-27] MEDS: Ketorolac INJ* 30 MG/ML 1 ML VIAL IV PRN ×2 (09:38→16:46)
[2018-05-27] MEDS ORDERED: NS 0.9% IVPB SCH (21:00)
[2018-05-27] MEDS ORDERED: GENTAMICIN ADULT IVPB SCH (21:00)
[2018-05-27] MEDS: oxyCODONE/Acetamin 5/325 MG* TAB PO PRN (21:09)
--- NOTE | 2018-05-27 21:17 | OP ---
CC: Dr. Robb * DATE OF OPERATION: 05/27/18 - ROOM #118 DATE OF : 89 SURGEON: Mignon Stoll MD FIRE EXTINGUISHER REPAIRER: Lalo Dunlap MD ANESTHESIOLOGIST: Dr. Mccann. ANESTHESIA: Epidural. EARLY LEARNING TEACHER: Anuj Joyner MD PRE-OP DIAGNOSES: Intrauterine , 40 and 0/7 weeks, chorioamnionitis, category 2 heart tracing, remote from delivery. POST-OP DIAGNOSES: Intrauterine , 40 and 0/7 weeks, chorioamnionitis, category 2 heart tracing, remote from delivery, delivered. OPERATIVE PROCEDURE: Primary low-transverse section. ESTIMATED BLOOD LOSS: 600 cc. URINE OUTPUT: 275 cc of clear yellow urine. FLUIDS: 1700 cc of crystalloid. FINDINGS: Revealed a vertex male with Apgars 9 at 1 minute and 10 at 5 minutes. Weight was 9 pounds and 6 ounces. No nuchal cord. No meconium. Normal-appearing tubes and ovaries bilaterally. Uterine cavity without evidence of retained membranes or placental tissue. Placenta was manually extracted, noted to be intact. Placental culture sent. Placenta sent to Pathology. COMPLICATIONS: None apparent. DISPOSITION: Stable to recovery room. DESCRIPTION OF PROCEDURE: The patient was placed in dorsal lithotomy position. The abdomen was prepped and draped in a sterile standard fashion. The patient was identified with universal protocol, and after testing for appropriate level of anesthesia, an incision was made 2 fingerbreadths above pubic symphysis. This was carried down through to the fascia. Fascia was scored in the midline, extended laterally and superiorly using August scissors. The fascia was superiorly and inferiorly with blunt and sharp dissection. The peritoneum was then entered bluntly. Bladder blade was inserted. Lower uterine segment was identified and tented with Allis. Incision was made with scalpel. This was carried down through to membrane. The incision was extended laterally and superiorly using bandage scissors. The infant was delivered vertex anterior, posterior shoulder delivered. No nuchal cord was appreciated. No meconium was noted. The cord was allowed to pulse for 60 seconds and the cord was clamped doubly and cut and the infant was handed off to waiting blunger machine operator. Appropriate cord blood was obtained. The placenta was manually extracted. The uterine cavity itself and the abdominal cavity were noted to be hot, above normal temperature range to palpation. The uterine cavity after documenting no retained placental tissue or membranes, placenta was sent to Pathology, but prior to pathology, placenta culture was obtained. The hysterotomy site itself was closed in 2 layers, first layer running locked 0 Vicryl, second layer running imbricated 0 Vicryl. The tubes and ovaries were noted to have a normal appearance. The uterus was returned intraabdominally. Colic gutters were lavaged. Hysterotomy site was revisualized. Hemostasis was assured. The peritoneum was reapproximated with 3-0 Vicryl in a running fashion. Subfascial area was visualized. Hemostasis was assured. The fascia itself was reapproximated using 0 Vicryl x2 in a running fashion. A Camper fascial stitch was placed using a 2-0 Vicryl in an interrupted fashion. The skin was then reapproximated using a 4-0 Monocryl in a subcuticular fashion. Mastisol and Steri- Strips were applied. All sponge, instrument, and blade counts were correct throughout the case. The patient tolerated the procedure well and went to the recovery room in stable condition. [id number]/[facility] #: [id number] [facility]PITALClay
[2018-05-27] MEDS ORDERED: NS 0.9% 100 ML* 0 ML ONE (23:09)
[2018-05-28] MEDS: oxyCODONE/Acetamin 5/325 MG* TAB PO PRN ×4 (02:22→20:44)
[2018-05-28] MEDS: Ampicillin ADVAN(*) 2 GM in NS 0.9% 100 ML* 100 ML IVPB SCH (04:59)
[2018-05-28] MEDS ORDERED: Gentamicin RANDOM Level 1 NOTE MISC FOLLOW UP ONE (05:00)
[2018-05-28] MEDS: Clindamycin 900 MG/D5W BAG(*) 900 MG/50 ML BAG IVPB SCH (05:52)
[2018-05-28 06:59] LABS: ABS Basophils 0 10^3/ul (0-0.2); ABS Eosinophils 0.1 10^3/ul (0-0.6); ABS Lymphocytes 0.7 10^3/ul (1.0-4.8); ABS Monocytes 1.2 10^3/ul (0-0.8); ABS Nucleated RBC 0 10^3/ul; Eosinophil % 0.4 %; Hematocrit 28 % (35-47); Lymphocyte % 5.3 %; Mean Corpuscular HGB Conc 33 g/dl (31-36); Mean Corpuscular Hemoglobin 29 pg (27-31); Mean Corpuscular Volume 89 fL (80-97); Mean Platelet Volume 9.7 fL (7.4-10.4); Nucleated Red Blood Cells % 0; Platelet Count 118 10^3/ul (150-450); Red Blood Count 3.11 10^6/ul (4.00-5.40); Red Cell Distribution Width 14 % (10.5-15)
[2018-05-28] MEDS: Ferrous Gluconate TAB* 324 MG TAB PO SCH ×2 (08:08→20:44)
[2018-05-28] MEDS: Prenatal Vitamin TAB PO SCH (08:09)
[2018-05-28] MEDS: Docusate CAP* 100 MG PO SCH ×3 (08:09→20:44)
[2018-05-28] MEDS: Simethicone TAB* 80 MG TAB.CHEW PO SCH ×4 (08:10→20:44)
[2018-05-28] MEDS: Ibuprofen TAB* 600 MG PO PRN ×2 (08:11→16:08)
[2018-05-29] MEDS: Ibuprofen TAB* 600 MG PO PRN ×4 (01:53→21:58)
[2018-05-29] MEDS: oxyCODONE/Acetamin 5/325 MG* TAB PO PRN ×5 (01:53→21:58)
[2018-05-29] MEDS: Docusate CAP* 100 MG PO SCH ×3 (08:09→20:02)
[2018-05-29] MEDS: Simethicone TAB* 80 MG TAB.CHEW PO SCH ×4 (08:09→20:02)
[2018-05-29] MEDS: Ferrous Gluconate TAB* 324 MG TAB PO SCH ×2 (08:09→20:02)
[2018-05-29] MEDS: Prenatal Vitamin TAB PO SCH (08:09)
[2018-05-30] MEDS: Ibuprofen TAB* 600 MG PO PRN (04:21)
[2018-05-30] MEDS: oxyCODONE/Acetamin 5/325 MG* TAB PO PRN (04:21)
[2018-05-30 07:38] VITALS: BP 122/64
[2018-05-30] MEDS: Simethicone TAB* 80 MG TAB.CHEW PO SCH (08:58)
[2018-05-30] MEDS: Docusate CAP* 100 MG PO SCH (08:58)
[2018-05-30] MEDS: Ferrous Gluconate TAB* 324 MG TAB PO SCH (08:58)
[2018-05-30] MEDS: Prenatal Vitamin TAB PO SCH (08:58)
== END 2018-05-30 10:15 | disposition home or self-care (01) | DRG 540 ==
LOC: MCHOBOUT 09:51 → MCHOB 11:44
PROVIDERS: ADMIT Midwife; ATTEND Obstetrics & Gynecology
PROC: 3E033VJ Introduction of Other Hormone into Peripheral Vein, Percutaneous Approach (ICD-10-PCS; 2018-05-27)
PROC: 10907ZC Drainage of Amniotic Fluid, Therapeutic from Products of Conception, Via Natural or Artificial Opening (ICD-10-PCS; 2018-05-27)
PROC: 10D00Z1 Extraction of Products of Conception, Low, Open Approach (ICD-10-PCS; principal; 2018-05-27 01:20)
DX: O76 Abnormality in fetal heart rate and rhythm complicating labor and delivery (principal); O75.2 Pyrexia during labor, not elsewhere classified; O41.1290 Chorioamnionitis, unspecified trimester, not applicable or unspecified; O99.214 Obesity complicating childbirth; O40.9XX0 Polyhydramnios, unspecified trimester, not applicable or unspecified; O99.52 Diseases of the respiratory system complicating childbirth; O90.81 Anemia of the puerperium; D64.9 Anemia, unspecified; J45.909 Unspecified asthma, uncomplicated; Z3A.40 40 weeks gestation of pregnancy; Z37.0 Single live birth
CPT/HCPCS: 36415; 59200; 80170; 82565; 84112; 84520; 85025; 86850; 86900; 86901; 87040; 87070; 87077; 87186; 88307; A9270-GY; J0690; J1580; J1885; J2400; J2590; J2795; J3010

== ENCOUNTER 2018-07-12 09:46 | Emergency (ER) | payer BC ==
[2018-07-12 10:32] LABS: ABS Basophils 0 10^3/ul (0-0.2); ABS Eosinophils 0.1 10^3/ul (0-0.6); ABS Lymphocytes 1.2 10^3/ul (1.0-4.8); ABS Monocytes 0.5 10^3/ul (0-0.8); ABS Neutrophils 6.3 10^3/ul (1.5-7.7); ABS Nucleated RBC 0 10^3/ul; Eosinophil % 1.4 %; Hematocrit 35 % (35-47); Hemoglobin 11.6 g/dl (12.0-16.0); Lymphocyte % 15.1 %; Mean Corpuscular HGB Conc 33 g/dl (31-36); Mean Corpuscular Hemoglobin 28 pg (27-31); Mean Corpuscular Volume 86 fL (80-97); Mean Platelet Volume 9.2 fL (7.4-10.4); Nucleated Red Blood Cells % 0.1; Platelet Count 249 10^3/ul (150-450); Red Cell Distribution Width 13 % (10.5-15); White Blood Count 8.2 10^3/ul (3.5-10.8)
[2018-07-12 10:42] LABS: Albumin/Globulin Ratio 1.4 (1-3); BUN/Creatinine Ratio 9.5 (8-20); C Reactive Protein 3.86 mg/L (<8.01); Calcium 8.8 mg/dL (8.6-10.3); EGFR African American 87.4 (>60); EGFR Non-African American 72.3 (>60); Globulin 2.9 g/dL (2-4); Potassium 4.2 mmol/L (3.5-5.0); Total Bilirubin 0.4 mg/dL (0.2-1.0); Total Protein 6.9 g/dL (6.4-8.9)
--- NOTE | 2018-07-12 11:18 | ED ---
Abdominal Pain/Female - HPI Summary HPI Summary: Pt. is a 23 y.o female who presents to the ER for abd. pain since last night. Pt. is s/p 5 weeks section. Pt. states she has been doing really well until last night when she developed lower sharp abd. pain. No modifying factors. Pt. denies fever, chills, N/V/C/D. She denies dysuria, vaginal bleeding or discharge. No other past medical hx. Pt. states she called her OB office and was told to come to the ER for evaluation. Sxs are moderate in severity. - History of Current Complaint Chief Complaint: Nakul Stated Complaint: "CSECTION 05/27/18, BAD ABD PAIN" PER PT Time Seen by Provider: 07/12/18 11:10 Hx Obtained From: Patient Hx Last Menstrual Period: 08/20/2017 Pain Intensity: 10 Allergies/Adverse Reactions: Allergies Allergy/AdvReac Type Severity Reaction Status Date / Time metronidazole Allergy Hives Verified 05/20/18 20:18 environmental Allergy Hives/Diff. Uncoded 05/20/18 20:18 Breathing/I tching PMH/Surg Hx/FS Hx/Imm Hx Previously Healthy: Yes Endocrine/Hematology History: Denies: Hx Anticoagulant Therapy, Hx Blood Disorders, Hx Diabetes, Hx Thyroid Disease, Hx Unexplained Bleeding Cardiovascular History: Denies: Hx Hypertension, Hx Pacemaker/ICD Respiratory History: Reports: Hx Asthma, Hx Sleep Apnea Denies: Hx Chronic Obstructive Pulmonary Disease (COPD), Other Respiratory Problems/Disorders GI History: Denies: Hx Ulcer History: Denies: Hx Kidney Infection, Other Problems/Disorders Musculoskeletal History: Reports: Other Musculoskeletal History - lumbar herniated disc Sensory History: Denies: Hx Hearing Aid Neurological History: Reports: Other Neuro Impairments/Disorders - concussions x 4 Psychiatric History: Reports: Hx Panic Disorder Denies: Hx Anxiety, Hx Depression, Other Psychiatric Issues/Disorders - Immunization History Date of Tetanus Vaccine: 2014 Date of Influenza Vaccine: 2013 Infectious Disease History: No Infectious Disease History: Denies: Hx Clostridium Difficile, Hx Hepatitis, Hx Human Immunodeficiency Virus (HIV), Hx of Known/Suspected MRSA, Hx Shingles, Hx Tuberculosis, Hx Known/ Suspected VRE, Hx Known/Suspected VRSA, History Other Infectious Disease, Traveled Outside the [place] in Last 30 Days - Family History Known Family History: Positive: Cardiac Disease, Hypertension - Social History Occupation: Employed Full-time Lives: With Family Alcohol Use: None Hx Substance Use: No Substance Use Type: Reports: None Hx Tobacco Use: No Smoking Status (MU): Never Smoked Tobacco Review of Systems Constitutional: Negative Negative: Fever Respiratory: Negative Positive: Abdominal Pain. Negative: Vomiting, Diarrhea Genitourinary: Negative Negative: dysuria, discharge, flank pain All Other Systems Reviewed And Are Negative: Yes Physical Exam Triage Information Reviewed: Yes Vital Signs On Initial Exam: Initial Vitals Temp Pulse Resp BP Pulse Ox 97.7 F 78 18 138/78 100 07/12/18 09:49 07/12/18 09:49 07/12/18 09:49 07/12/18 09:49 07/12/18 09:49 Vital Signs Reviewed: Yes Appearance: Positive: Well-Appearing - Pt lying comfortably on bed in NAD> Skin: Positive: Warm, Dry Head/Face: Positive: Normal Head/Face Inspection Eyes: Positive: Normal, EOMI Neck: Positive: Supple Respiratory/Lung Sounds: Positive: Clear to Auscultation, Breath Sounds Present Cardiovascular: Positive: Normal, RRR Abdomen Description: Positive: Other: - Obese. Abd. is soft with mild tenderness to the LLQ and periumbilical region. No rebound tenderness or guarding. Healing incision to lower abd. without signs of infection. No CVA tenderness bilaterally Neurological: Positive: Normal, CN Intact II-III Psychiatric: Positive: Affect/Mood Appropriate Diagnostics - Vital Signs Vital Signs Temp Pulse Resp BP Pulse Ox 07/12/18 09:49 97.7 F 78 18 138/78 100 - Laboratory Lab Results: Lab Results 07/12/18 07/12/18 07/12/18 Range/Units 10:11 10:11 10:11 WBC 8.2 (3.5-10.8) 10^3/ul RBC 4.10 (4.00-5.40) 10^6/ul Hgb 11.6 L (12.0-16.0) g/dl Hct 35 (35-47) % MCV 86 (80-97) fL MCH 28 (27-31) pg MCHC 33 (31-36) g/dl RDW 13 (10.5-15) % Plt Count 249 (150-450) 10^3/ul MPV 9.2 (7.4-10.4) fL Neut % (Auto) 77.1 % Lymph % (Auto) 15.1 % [place] % (Auto) 6.1 % Eos % (Auto) 1.4 % Baso % (Auto) 0.3 % Absolute Neuts (auto) 6.3 (1.5-7.7) 10^3/ul Absolute Lymphs (auto) 1.2 (1.0-4.8) 10^3/ul Absolute Monos (auto) 0.5 (0-0.8) 10^3/ul Absolute Eos (auto) 0.1 (0-0.6) 10^3/ul Absolute Basos (auto) 0 (0-0.2) 10^3/ul Absolute Nucleated RBC 0 10^3/ul Nucleated RBC % 0.1 Sodium 137 (135-145) mmol/L Potassium 4.2 (3.5-5.0) mmol/L Chloride 107 (101-111) mmol/L Carbon Dioxide 23 (22-32) mmol/L Anion Gap 7 (2-11) mmol/L BUN 9 (6-24) mg/dL Creatinine 0.95 (0.51-0.95) mg/dL Est GFR ( Amer) 87.4 (>60) Est GFR (Non-Af Amer) 72.3 (>60) BUN/Creatinine Ratio 9.5 (8-20) Glucose 99 (70-100) mg/dL Lactic Acid 1.0 (0.5-2.0) mmol/L Calcium 8.8 (8.6-10.3) mg/dL Total Bilirubin 0.40 (0.2-1.0) mg/dL AST 40 H (13-39) U/L ALT 31 (7-52) U/L Alkaline Phosphatase 97 (34-104) U/L C-Reactive Protein 3.86 (<8.01) mg/L Total Protein 6.9 (6.4-8.9) g/dL Albumin 4.0 (3.2-5.2) g/dL Globulin 2.9 (2-4) g/dL Albumin/Globulin Ratio 1.4 (1-3) Lipase 22 (11.0-82.0) U/L Result Diagrams: 07/12/18 10:11 07/12/18 10:11 Lab Statement: Any lab studies that have been ordered have been reviewed, and results considered in the medical decision making process. Abdominal Pain Fem Course/Dx - Course Course Of Treatment: Pt. presenting for abd. pain 5 weeks after c section. She is afebrile and very well appearing. She has a benign abd. exam with minimal reproducible pain. Blood work unremarkable including normal CBC and CRP. I spoke with pt.'s OB, Dr. Robb, who does not recommend any imaging at this time based on pt.'s exam and blood work. He notes she has a f.u apt. Pt comfortable with dc. Advised tylenol or motrin for pain as directed, T. return to ER for increased pain, fever, vomiting or if concerned. - Diagnoses Differential Diagnosis: Positive: Appendicitis, Pelvic Inflammatory Disease, , Urinary Tract Infection Provider Diagnoses: Abdominal pain Discharge - Sign-Out/Discharge Documenting (check all that apply): Patient Departure Patient Received Moderate/Deep Sedation with Procedure: No - Discharge Plan Condition: Good Disposition: HOME Patient Education Materials: Abdominal Pain (ED) Referrals: Kris Robb MD [Medical Doctor] - Joce Arguelles MD [Primary Care Provider] - Additional Instructions: Follow up with Dr. Robb as scheduled Can take Tylenol or Motrin for pain as directed Return to ER for increased pain, fever, vomiting or if concerned - Billing Disposition and Condition Condition: GOOD Disposition: Home
[2018-07-12 12:03] LABS: HCG Pregnancy 0.93 mIU/mL
[2018-07-12 12:30] LABS: Urine Appearance Clear; Urine Bilirubin Negative (Negative); Urine Blood Negative (Negative); Urine Color Yellow; Urine Glucose Negative (Negative); Urine Ketones Negative (Negative); Urine Nitrite Negative (Negative); Urine Protein Negative (Negative); Urine Specific Gravity 1.016 (1.010-1.030); Urine Urobilinogen Negative (Negative)
[2018-07-12 14:10] VITALS: BP 132/84
== END 2018-07-12 14:08 | disposition home or self-care (01) ==
LOC: ED 09:46
DX: R10.9 Unspecified abdominal pain (principal)
CPT/HCPCS: 36415; 80053; 81003; 83605; 83690; 84702; 85025; 86140; 99281

== ENCOUNTER 2018-08-10 11:54 | Emergency (ER) | payer BC ==
[2018-08-10 12:47] VITALS: BP 134/75
--- NOTE | 2018-08-10 14:36 | UC ---
Nausea/Vomiting/Diarrhea HPI - HPI Summary HPI Summary: 23-year-old female presents with complaints of generalized abdominal pain. States she had a 05/27/2018 without complication however developed this generalized abdominal pain several weeks later and was evaluated in the emergency room on 07/12/2018. They performed lab work which was all within normal limits however after discussing case with the patient's HEALTHCARE NETWORK CONSULTANT it was felt that no further testing was needed. 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 She has recently been started on an antidepressant for depression. Had some excessive vaginal bleeding and had a Mirena IUD placed on 07/27/2018. Vaginal bleed stopped yesterday. Reports continues to have intermittent generalized abdominal pain which tends to be worse first thing in the morning. Today she had one episode of vomiting while at work but denies any nausea at this time. Denies fever, chills, weakness, dizziness, lightheadedness, chest pain, shortness of breath, diarrhea, hematemesis, blood in stool, melena, dysuria, frequency, urgency, hematuria, or vaginal discharge. - History of Current Complaint Chief Complaint: UCAbdominalPain Stated Complaint: VOMITING Time Seen by Provider: 08/10/18 14:28 Hx Obtained From: Patient Hx Last Menstrual Period: 08/02/2018 Pain Intensity: 5 - Allergies/Home Medications Allergies/Adverse Reactions: Allergies Allergy/AdvReac Type Severity Reaction Status Date / Time metronidazole Allergy Hives Verified 08/10/18 12:37 environmental Allergy Hives/Diff. Uncoded 08/10/18 12:37 Breathing/I tching Home Medications: Home Medications Mirena IUD 08/10/18 [History] Sertraline HCl 50 mg PO DAILY 08/10/18 [History Confirmed 08/10/18] PMH/Surg Hx/FS Hx/Imm Hx Psychological History: Depression - Post- Other History Of: Negative For: Anticoagulant Therapy - Surgical History Surgical History: Yes Surgery Procedure, Year, and Place: emergency c/section 05/27/2018 d/t maternal fever - Family History Known Family History: Positive: Cardiac Disease, Hypertension - Social History Occupation: Employed Part-time Lives: With Family Alcohol Use: None Substance Use Type: None Smoking Status (MU): Never Smoked Tobacco Household Exposure Type: Cigarettes - Immunization History Most Recent Influenza Vaccination: 01/29/18 Most Recent Tetanus Shot: UTD Most Recent Pneumonia Vaccination: na Review of Systems All Other Systems Reviewed And Are Negative: Yes Constitutional: Negative: Fever, Chills Respiratory: Negative: Shortness Of Breath Cardiovascular: Negative: Palpitations, Chest Pain Gastrointestinal: Positive: Abdominal Pain, Vomiting. Negative: Diarrhea Genitourinary: Negative: Dysuria, Hematuria, Frequency, Urgency, Vaginal/Penile Discharge Musculoskeletal: Positive: Negative Neurological: Positive: Negative Is Patient Immunocompromised?: No Physical Exam - Summary Physical Exam Summary: GENERAL APPEARANCE: Well developed, well nourished, alert and cooperative, and appears to be in no acute distress. CARDIAC: Normal S1 and S2. No S3, S4 or murmurs. Rhythm is regular. There is no peripheral edema, cyanosis or pallor. Extremities are warm and well perfused. Capillary refill is less than 2 seconds. Peripheral pulses intact. LUNGS: Clear to auscultation without rales, rhonchi, wheezing or diminished breath sounds. ABDOMEN: Positive bowel sounds. Soft, nondistended. Mild generalized abdominal tenderness without guarding or rebound. No masses or hepatosplenomegally. MUSKULOSKELETAL: ROM intact to all extremities. No joint erythema or tenderness. Normal muscular development. Normal gait. SKIN: Skin normal color, texture and turgor with no lesions or eruptions. Triage Information Reviewed: Yes Vital Signs: Initial Vital Signs Temp 99.5 F 08/10/18 12:40 Pulse 82 08/10/18 12:40 Resp 17 08/10/18 12:40 BP 134/75 08/10/18 12:40 Pulse Ox 100 08/10/18 12:40 Vital Signs Reviewed: Yes Naus/Vom/Diarrhea Course/Dx - Course Course Of Treatment: 23-year-old female presents with complaints of generalized abdominal pain. States she had a 05/25/2018 without complication however developed this generalized abdominal pain several weeks later and was evaluated in the emergency room on 07/12/2018. They performed lab work which was all within normal limits however after discussing case with the patient's HEALTHCARE NETWORK CONSULTANT it was felt that no further testing was needed. 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 She has recently been started on an antidepressant for depression. Had some excessive vaginal bleeding and had a Mirena IUD placed on 07/27/2018. Vaginal bleed stopped yesterday. Reports continues to have intermittent generalized abdominal pain which tends to be worse first thing in the morning. Today she had one episode of vomiting while at work but denies any nausea at this time. Denies fever, chills, weakness, dizziness, lightheadedness, chest pain, shortness of breath, diarrhea, hematemesis, blood in stool, melena, dysuria, frequency, urgency, hematuria, or vaginal discharge. Afebrile. Vital signs stable. Exam was overall unremarkable except for some mild generalized abdominal tenderness without rebound or guarding. Considering the duration of her symptoms and the fact that her pain is unchanged since her evaluation in the emergency room I do feel that the patient probably needs some repeat lab work and possibly diagnostic testing for further evaluation of her abdominal pain however I discussed with the patient that the appropriate radiological testing was not available at this facility. I do not feel that her symptoms warrant an emergency evaluation and have recommended that she either follow up with her HEALTHCARE NETWORK CONSULTANT or primary care provider for the appropriate testing. Anticipatory guidance and warning symptoms that would require immediate evaluation in the emergency room were reviewed with the patient. She verbalizes understanding and agrees with the plan of care. - Differential Dx/Diagnosis Differential Diagnoses - Female: Gall Bladder Disease, Peptic Ulcer Disease, Urinary Tract Infection, Gastroenteritis (Viral), Gastroenteritis (Bacterial), Vomiting, Peptic Ulcer Disease Provider Diagnosis: Abdominal pain, Vomiting Condition At Discharge: Stable Discharge - Sign-Out/Discharge Documenting (check all that apply): Patient Departure All imaging exams completed and their final reports reviewed: No Studies - Discharge Plan Condition: Stable Disposition: HOME Patient Education Materials: Acute Abdominal Pain (ED) Referrals: Joce Arguelles MD [Primary Care Provider] - 3 Days Additional Instructions: Considering the duration of your symptoms it would be recommended that you have some follow up blood work and possibly some diagnostic testing however we are not able to obtain the appropriate tests in the clinic at this time. I would recommend that you follow up with your primary care provider or with your HEALTHCARE NETWORK CONSULTANT within the next 3 days for further evaluation and treatment. Seek immediate medical attention in the emergency room if you develop fever greater than 100.5 F, worsening of the abdominal pain, persistent vomiting, blood in your vomit or bowel movements, or any worsening of symptoms. - Billing Disposition and Condition Condition: STABLE Disposition: Home
== END 2018-08-10 14:55 | disposition home or self-care (01) ==
LOC: UCEAST 11:54
DX: R10.84 Generalized abdominal pain (principal); R11.10 Vomiting, unspecified; O99.345 Other mental disorders complicating the puerperium; F53.0 Postpartum depression
CPT/HCPCS: 99211; G0463

== ENCOUNTER 2018-09-28 10:09 | Emergency (ER) | payer BC, MEDICAID ==
[2018-09-28 10:52] VITALS: BP 129/81
--- NOTE | 2018-09-28 11:56 | UC ---
General HPI - HPI Summary HPI Summary: Patient started having URI symptoms 5 days ago - rested all weekend. Took dayquil and nyquil. Went to work at [employer] and was sent to get checked out. Her co-worked had a recent bad URI. Patient has a 4 month old and worried about getting her sick. Minimal cough but states she occasionally gets SOB and has been using her albuterol inhaler with spacer a lot in the past few days. Takes a nasal spray for allergies. +Congestion - sore throat has since improved. Has felt hot and cold but no documented fevers. No N/V/D. Good PO. Meds: reviewed - History of Current Complaint Chief Complaint: UCGeneralIllness Stated Complaint: ATHSMA, AND SINUS CONGESTION Time Seen by Provider: 09/28/18 11:41 Hx Last Menstrual Period: 09/28/18 Pain Intensity: 0 - Allergy/Home Medications Allergies/Adverse Reactions: Allergies Allergy/AdvReac Type Severity Reaction Status Date / Time metronidazole Allergy Hives Verified 09/28/18 10:45 environmental Allergy Hives/Diff. Uncoded 09/28/18 10:45 Breathing/I tching Home Medications: Home Medications Levonorgestrel (Iud) [Mirena IUD] 20 mcg IU DAILY 09/28/18 [History Confirmed ] PMH/Surg Hx/FS Hx/Imm Hx Previously Healthy: Yes Respiratory History: Asthma Other History Of: Negative For: Anticoagulant Therapy - Surgical History Surgical History: Yes Surgery Procedure, Year, and Place: emergency c/section 05/27/2018 d/t maternal fever - Family History Known Family History: Positive: Cardiac Disease, Hypertension - Social History Alcohol Use: Occasionally Substance Use Type: None Smoking Status (MU): Never Smoked Tobacco Household Exposure Type: Cigarettes - Immunization History Most Recent Influenza Vaccination: 01/29/18 Most Recent Tetanus Shot: UTD Most Recent Pneumonia Vaccination: na Review of Systems All Other Systems Reviewed And Are Negative: Yes ENT: Positive: Sore Throat, Sinus Pain/Tenderness Respiratory: Positive: Cough Physical Exam Triage Information Reviewed: Yes Appearance: Well-Appearing Vital Signs: Initial Vital Signs Temp 98.2 F 09/28/18 10:46 Pulse 86 09/28/18 10:46 Resp 18 09/28/18 10:46 BP 129/81 09/28/18 10:46 Pulse Ox 100 05/28/19 10:46 Vital Signs Reviewed: Yes ENT: Positive: Pharyngeal erythema, Nasal congestion, Other - TM's clear fluid b /l, no erythema or bulging Neck: Positive: Supple, Nontender Respiratory: Positive: Other: - diminished breath sounds. worse over right lung. No W/R/R. No increase in work of breathing Cardiovascular: Positive: RRR, No Murmur Diagnostics - Radiology CXR Radiology Interpretation Completed By: Radiologist Summary of Radiographic Findings: No acute finding Course/Dx - Course Course Of Treatment: This is a 23 yr old with PMHx of Asthma who presents with URI s/s Assessment Nontoxic appearing CXR: Negative Plan Chest xray was negative for pneumonia Continue supportive care Continue dayquil and nyquil as needed Can also continue ibuprofen Continue albuterol inhaler with spacer as prescribed If symptoms persist or worsen, recommend follow up with your primary care doctor or return to urgent care - Diagnoses Provider Diagnosis: Viral syndrome Discharge - Sign-Out/Discharge Documenting (check all that apply): Patient Departure All imaging exams completed and their final reports reviewed: Yes - Discharge Plan Condition: Good Disposition: HOME Patient Education Materials: Viral Syndrome (ED) Forms: *Work Release Referrals: Joce Arguelles MD [Primary Care Provider] - Additional Instructions: Chest xray was negative for pneumonia Continue supportive care Continue dayquil and nyquil as needed Can also continue ibuprofen Continue albuterol inhaler with spacer as prescribed If symptoms persist or worsen, recommend follow up with your primary care doctor or return to urgent care - Billing Disposition and Condition Condition: GOOD Disposition: Home
== END 2018-09-28 12:35 | disposition home or self-care (01) ==
LOC: UCEAST 10:09
DX: B34.9 Viral infection, unspecified (principal); R06.02 Shortness of breath; R09.81 Nasal congestion; R05 Cough; J02.9 Acute pharyngitis, unspecified; J45.909 Unspecified asthma, uncomplicated; Z88.1 Allergy status to other antibiotic agents; Z91.09 Other allergy status, other than to drugs and biological substances
CPT/HCPCS: 71046; 99211; G0463

== ENCOUNTER 2018-10-05 11:41 | Emergency (ER) | payer BC, MEDICAID ==
[2018-10-05 12:57] VITALS: BP 144/92
--- NOTE | 2018-10-05 12:58 | UC ---
Elbow Pain - HPI Summary HPI Summary: WAS CARRYING HER INFANT IN ONE ARM AND GROCERIES IN THE OTHER YESTERDAY WHEN SHE TRIPPED AND FELL. LANDED ON HER LEFT ELBOW. ARRIVES WITH PAIN AND SOME TINGLING IN HER HAND. - History of Current Complaint Chief Complaint: UCUpperExtremity Stated Complaint: LT ARM NUMBNESS Time Seen by Provider: 10/05/18 12:57 Hx Obtained From: Patient Hx Last Menstrual Period: 09/27/18 Mechanism of Injury: FALL Onset/Duration: Hours, Still Present Severity Initially: Moderate Severity Currently: Moderate Pain Intensity: 9 Pain Scale Used: 0-10 Numeric Location Of Pain: Is Discrete @ - LEFT ELBOW Character: Sharp Aggravating Factor(s): Movement, Other - PALPATION Alleviating Factor(s): Rest Associated Signs And Symptoms: Positive: Numbness/Tingling - Allergies/Home Medications Allergies/Adverse Reactions: Allergies Allergy/AdvReac Type Severity Reaction Status Date / Time metronidazole Allergy Hives Verified 10/05/18 12:02 environmental Allergy Hives/Diff. Uncoded 10/05/18 12:02 Breathing/I tching PMH/Surg Hx/FS Hx/Imm Hx Respiratory History: Asthma Other History Of: Negative For: Anticoagulant Therapy - Surgical History Surgical History: Yes Surgery Procedure, Year, and Place: emergency c/section 05/27/2018 d/t maternal fever - Family History Known Family History: Positive: Cardiac Disease, Hypertension - Social History Alcohol Use: Occasionally Substance Use Type: None Smoking Status (MU): Never Smoked Tobacco Household Exposure Type: Cigarettes - Immunization History Most Recent Influenza Vaccination: 01/29/18 Most Recent Tetanus Shot: UTD Most Recent Pneumonia Vaccination: na Review of Systems All Other Systems Reviewed And Are Negative: Yes Skin: Positive: Negative Respiratory: Positive: Negative Cardiovascular: Positive: Negative Gastrointestinal: Positive: Negative Musculoskeletal: Positive: Arthralgia. Negative: Edema, Myalgia Physical Exam Triage Information Reviewed: Yes Appearance: Well-Appearing, No Pain Distress, Well-Nourished Vital Signs: Initial Vital Signs Temp 98 F 10/05/18 11:59 Pulse 80 10/05/18 11:59 Resp 17 10/05/18 11:59 BP 144/92 10/05/18 11:59 Pulse Ox 100 10/05/18 11:59 Vital Signs Reviewed: Yes Eyes: Positive: Conjunctiva Clear ENT: Positive: Hearing grossly normal Neck: Positive: Supple Respiratory: Positive: No respiratory distress, No accessory muscle use Cardiovascular: Positive: Pulses Normal Abdomen Description: Positive: Soft Musculoskeletal: Positive: ROM Intact, No Edema, Other: - TTP DIFFUSELY LEFT ELBOW Neurological: Positive: Alert Psychological: Positive: Age Appropriate Behavior Skin: Negative: Rashes Diagnostics - Radiology LEFT ELBOW XRAYS Radiology Interpretation Completed By: Radiologist Summary of Radiographic Findings: NO ACUTE OSSEOUS INJURY. Elbow Pain Course/Dx - Course Course Of Treatment: X-RAY TODAY UNREMARKABLE FOR FRACTURE OR DISLOCATION. TIKI WRAP PROVIDED FOR COMPRESSION AND SUPPORT. PATIENT ADVISED TO REST AND APPLY ICE NEEDED. FOLLOW-UP WITH ORTHOPEDICS OR PCP IF SHE IS NOT IMPROVING WITH CONSERVATIVE MANAGEMENT. - Differential Dx/Diagnosis Provider Diagnosis: Left elbow contusion Discharge - Sign-Out/Discharge Documenting (check all that apply): Patient Departure All imaging exams completed and their final reports reviewed: Yes - Discharge Plan Condition: Stable Disposition: HOME Patient Education Materials: Contusion in Adults (ED) Referrals: Aubrey Batista MD [Medical Doctor] - If Needed Joce Arguelles MD [Primary Care Provider] - If Needed Additional Instructions: XRAY TODAY NEGATIVE FOR FRACTURE OR DISLOCATION. YOUR SYMPTOMS SHOULD IMPROVE SIGNIFICANTLY OVER THE NEXT 1-2 WEEKS. IF YOU DO NOT IMPROVE EXPECTED FOLLOW- UP WITH YOUR PCP OR ORTHO. YOU MAY BENEFIT FROM REPEAT IMAGING AT THAT TIME. OTC IBUPROFEN OR ALEVE NEEDED FOR DISCOMFORT. REST, ICE, COMPRESS, ELEVATE. TIKI WRAP NEEDED FOR SYMPTOM RELIEF. BE SURE TO GO THROUGH SLOW RANGE OF MOTION AND STRETCHING EXERCISES DAILY YOU ARE ABLE TO PREVENT STIFFENING UP AND MAKING THE DISCOMFORT WORSE. - Billing Disposition and Condition Condition: STABLE Disposition: Home
== END 2018-10-05 13:41 | disposition home or self-care (01) ==
LOC: UCEAST 11:41
DX: S50.02XA Contusion of left elbow, initial encounter (principal); W01.0XXA Fall on same level from slipping, tripping and stumbling without subsequent striking against object, initial encounter; Y92.009 Unspecified place in unspecified non-institutional (private) residence as the place of occurrence of the external cause; Z88.1 Allergy status to other antibiotic agents
CPT/HCPCS: 99212; G0463

== ENCOUNTER 2019-05-31 10:06 | Emergency (ER) | payer BC, MEDICAID ==
[2019-05-31 10:22] VITALS: BP 146/87
[2019-05-31] MEDS ORDERED: Ipratropium 0.5MG/2.5ML NEB* 0.5 MG/2.5 ML NEB.SOLN INH ONE (10:58)
[2019-05-31] MEDS ORDERED: Albuterol 2.5 MG/3 ML NEB.SOL* (0.083%) INH ONE (10:58)
--- NOTE | 2019-05-31 10:58 | UC ---
Shortness of Breath HPI - HPI Summary HPI Summary: 2 DAYS OF SHORTNESS OF BREATH AND WHEEZE. CHEST FEELS A BIT TIGHT. PATIENT COMPLAINING OF COUGH. HAS A HISTORY OF ASTHMA. SHE STATES THIS FEELS WORSE THAN HER NORMAL ASTHMA SYMPTOMS. DOES NOT HAVE AN INHALER AT HOME. DENIES CHEST PAIN. NO FEVER. NO NAUSEA/VOMITING. - History of Current Complaint Chief Complaint: UCRespiratory Stated Complaint: SHORT OF BREATH Time Seen by Provider: 05/31/19 10:51 Hx Obtained From: Patient Hx Last Menstrual Period: 05/31/19 Onset/Duration: Gradual Onset, Lasting Days, Still Present Timing: Constant Current Severity: Moderate Dyspnea At: Exertion Aggravating Factors: Movement Alleviating Factors: Nothing Associated Signs & Symptoms: Positive: Cough (Nonproductive), Wheezing. Negative: Chest Pain w/Cough, Chest Pain Unrelated to Cough, Chills, Dizzy - Allergy/Home Medications Allergies/Adverse Reactions: Allergies Allergy/AdvReac Type Severity Reaction Status Date / Time metronidazole Allergy Hives Verified 05/31/19 10:21 CATS/DOGS/BANANAS Allergy Hives/Diff. Uncoded 05/31/19 10:21 Breathing/I tching environmental Allergy Hives/Diff. Uncoded 05/31/19 10:21 Breathing/I tching Home Medications: Home Medications ALPRAZolam [Alprazolam] 1 tab PO DAILY 05/31/19 [History Confirmed 05/31/19] Sertraline* [Zoloft*] 1 tab PO DAILY 05/31/19 [History Confirmed 05/31/19] PMH/Surg Hx/FS Hx/Imm Hx Respiratory History: Asthma Other History Of: Negative For: Anticoagulant Therapy - Surgical History Surgical History: Yes Surgery Procedure, Year, and Place: emergency c/section 05/27/2018 d/t maternal fever - Family History Known Family History: Positive: Cardiac Disease, Hypertension - Social History Alcohol Use: None Substance Use Type: None Smoking Status (MU): Never Smoked Tobacco Household Exposure Type: Cigarettes - Immunization History Most Recent Influenza Vaccination: 01/29/18 Most Recent Tetanus Shot: UTD Most Recent Pneumonia Vaccination: na Review of Systems All Other Systems Reviewed And Are Negative: Yes Constitutional: Positive: Negative ENT: Positive: Negative Respiratory: Positive: Shortness Of Breath, Cough, Other - WHEEZE Cardiovascular: Positive: Negative Gastrointestinal: Positive: Negative Physical Exam Triage Information Reviewed: Yes Appearance: Well-Appearing, No Pain Distress, Well-Nourished Vital Signs: Initial Vital Signs Temp 98.1 F 05/31/19 10:13 Pulse 100 05/31/19 10:13 Resp 20 05/31/19 10:13 BP 146/87 05/31/19 10:13 Pulse Ox 100 05/31/19 10:13 Vital Signs Reviewed: Yes Eyes: Positive: Conjunctiva Clear ENT: Positive: Hearing grossly normal, Pharynx normal, TMs normal Neck: Positive: Supple, Nontender, No Lymphadenopathy Respiratory: Positive: No respiratory distress, No accessory muscle use, Decreased breath sounds. Negative: Wheezing Cardiovascular Exam: Normal Abdomen Description: Positive: Soft Musculoskeletal: Positive: No Edema Neurological: Positive: Alert Psychological: Positive: Age Appropriate Behavior Skin: Negative: Rashes Diagnostics - EKG Cardiac Rate: NL - 93BPM Cardiac Rhythm: Sinus: Normal Ectopy: None ST Segment: Normal Re-Evaluation - Re-Evaluation First Eval Re-Evaluation Time: 11:50 - FELT A BIT BETTER AFTER DUONEB Change: Improved Shortness of Breath Dx - Course Course Of Treatment: SUSPECT ASTHMA EXACERBATION. PATIENT FELT IMPROVED AFTER DUONEB TREATMENT. WILL SEND HOME WITH ALBUTEROL AND PREDNISONE. AEROCHAMBER PROVIDED. FOLLOW-UP IF NOT CONTINUING TO IMPROVE EXPECTED. - Differential Dx/Diagnosis Provider Diagnosis: Asthma exacerbation Discharge ED - Sign-Out/Discharge Documenting (check all that apply): Patient Departure All imaging exams completed and their final reports reviewed: No Studies - Discharge Plan Condition: Stable Disposition: HOME Prescriptions: Albuterol HFA INHALER* [Ventolin HFA Inhaler*] 2 puff INH Q4H PRN #1 mdi PRN Reason: Shortness Of Breath predniSONE 50 mg TAB [Deltasone 50 mg TAB] 50 mg PO DAILY #5 tab Patient Education Materials: Asthma (ED) Forms: *Work Release Referrals: [facility] [Outside] - If Needed Additional Instructions: I SUSOECT YOU ARE EXPERIENCING AN ASTHMA EXACERBATION. YOU FELT SLIGHTLY BETTER AFTER A DUONEB TREATMENT. TAKE THE PREDNISONE ONCE DAILY FOR THE NEXT 5 DAYS. ALBUTEROL INHALER FOR YOU TO USE AT HOME IF NEEDED FOR SHORTNESS OF BREATH AND COUGH. NO INDICATION FOR ANTIBIOTICS AT PRESENT. FOLLOW-UP WITH WITH A PCP IF YOU'RE NOT FEELING IMPROVED OVER THE NEXT FEW DAYS. - Billing Disposition and Condition Condition: STABLE Disposition: Home
[2019-05-31] MEDS ORDERED: Albuterol/Ipratropium NEB.SOL* Albuterol 2.5 MG/Ipratropium 0.5 MG 3 ML INH ONE (11:12)
== END 2019-05-31 12:10 | disposition home or self-care (01) ==
LOC: UCEAST 10:06
DX: J45.901 Unspecified asthma with (acute) exacerbation (principal); Z88.1 Allergy status to other antibiotic agents; Z91.09 Other allergy status, other than to drugs and biological substances
CPT/HCPCS: 99212; A9270-GY; G0463

== ENCOUNTER 2019-06-02 07:29 | Emergency (ER) | payer BC, MEDICAID ==
--- NOTE | 2019-06-02 08:13 | ED ---
Influenza-Like Illness - HPI Summary HPI Summary: 24 year old F arriving via private car complains of shortness of breath x5 days , and fever 103F, nausea/vomiting/diarrhea, fatigue, light headedness x2 days. Patient states she was feeling unwell on Thursday05/28/2019 and developed shortness of breath and wheezing. Hx exercise induced asthma. Patient states she still wasn't feeling well on Thursday05/30/2019 but went to work. She states she went to [facility] on Thursday05/31/2019 where she had nebulizer treatment which did not help, and she did not have CXR or fluids, and was discharged home with inhaler and steroids which have not helped. Patient states she did not go to work on Thursday05/31/2019 or Thursday06/02/2019. Patient was instructed to go to the ED if she wasn't better. Patient denies chills, erythema of eyes, sore throat, chest pain, cough, abdominal pain, dysuria, hematuria, myalgia, edema, pain or swelling in bilateral lower extremities, rash , or dizziness. Symptoms rated 0/10 in severity. Symptoms aggravated by nothing. Symptoms alleviated by nothing. 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 Medications reviewed. Allergies noted. - History of Current Complaint Chief Complaint: EDFluSymptoms Time Seen by Provider: 06/02/19 07:37 Hx Obtained From: Patient Onset/Duration: Lasting Days, Still Present Severity: Mild - Allergy/Home Medications Allergies/Adverse Reactions: Allergies Allergy/AdvReac Type Severity Reaction Status Date / Time metronidazole Allergy Hives Verified 06/02/19 07:30 CATS/DOGS/BANANAS Allergy Hives/Diff. Uncoded 06/02/19 07:30 Breathing/I tching environmental Allergy Hives/Diff. Uncoded 06/02/19 07:30 Breathing/I tching PMH/Surg Hx/FS Hx/Imm Hx Endocrine/Hematology History: Denies: Hx Anticoagulant Therapy, Hx Blood Disorders, Hx Diabetes, Hx Thyroid Disease, Hx Unexplained Bleeding Cardiovascular History: Denies: Hx Hypertension, Hx Pacemaker/ICD Respiratory History: Reports: Hx Asthma, Hx Sleep Apnea Denies: Hx Chronic Obstructive Pulmonary Disease (COPD), Other Respiratory Problems/Disorders GI History: Denies: Hx Ulcer History: Denies: Hx Kidney Infection, Hx Renal Disease, Other Problems/Disorders Musculoskeletal History: Reports: Other Musculoskeletal History - lumbar herniated disc Sensory History: Denies: Hx Hearing Aid Neurological History: Reports: Other Neuro Impairments/Disorders - concussions x 4 Psychiatric History: Reports: Hx Anxiety, Hx Depression Denies: Hx Panic Disorder, Other Psychiatric Issues/Disorders - Surgical History Surgery Procedure, Year, and Place: emergency c/section 05/27/2018 d/t maternal fever - Immunization History Date of Tetanus Vaccine: 2014 Date of Influenza Vaccine: 2013 Infectious Disease History: No Infectious Disease History: Denies: Hx Clostridium Difficile, Hx Hepatitis, Hx Human Immunodeficiency Virus (HIV), Hx of Known/Suspected MRSA, Hx Shingles, Hx Tuberculosis, Hx Known/ Suspected VRE, Hx Known/Suspected VRSA, History Other Infectious Disease, Traveled Outside the in Last 30 Days - Family History Known Family History: Positive: Cardiac Disease, Hypertension - Social History Alcohol Use: None Hx Substance Use: No Substance Use Type: Reports: None Hx Tobacco Use: No Smoking Status (MU): Never Smoked Tobacco Review of Systems Positive: Fever, Fatigue. Negative: Chills Negative: Erythema Negative: Sore Throat Negative: Chest Pain Positive: Shortness Of Breath. Negative: Cough Positive: Vomiting, Diarrhea, Nausea. Negative: Abdominal Pain Negative: dysuria Musculoskeletal: Negative - pain or swelling in bilateral lower extremities Negative: Myalgia, Edema Negative: Rash Neurological: Negative - Dizziness, Other - light headedness All Other Systems Reviewed And Are Negative: Yes Physical Exam - Summary Physical Exam Summary: Constitutional: Well-developed, Well-nourished, Alert. (-) Distressed Skin: Warm, Dry HENT: Normocephalic; Atraumatic Eyes: Conjunctiva normal Neck: Musculoskeletal ROM normal neck. (-) JVD, (-) Stridor, (-) Tracheal deviation Cardio: Rhythm regular, rate normal, Heart sounds normal; Intact distal pulses; The pedal pulses are 2+ and symmetric. Radial pulses are 2+ and symmetric. (-) Murmur Pulmonary/Chest wall: Effort normal. (-) Respiratory distress, (-) Wheezes, (-) Rales. Diminished breath sounds Abd: Soft, (-) tenderness, (-) Distension, (-) Guarding, (-) Rebound Musculoskeletal: (-) Edema Lymph: (-) Cervical adenopathy Neuro: Alert, Oriented x3 Psych: Mood and affect Normal Triage Information Reviewed: Yes Vital Signs On Initial Exam: Initial Vitals Temp Pulse Resp BP Pulse Ox 98.0 F 90 20 129/95 100 06/02/19 07:30 06/02/19 07:30 06/02/19 07:30 06/02/19 07:30 06/02/19 07:30 Vital Signs Reviewed: Yes Procedures - Sedation Patient Received Moderate/Deep Sedation with Procedure: No Diagnostics - Vital Signs Vital Signs Temp Pulse Resp BP Pulse Ox 06/02/19 07:30 98.0 F 90 20 129/95 100 - Laboratory Result Diagrams: 06/02/19 08:53 06/02/19 08:53 Lab Statement: Any lab studies that have been ordered have been reviewed, and results considered in the medical decision making process. - Radiology CXR Radiology Interpretation Completed By: ED Physician Summary of Radiographic Findings: No acute disease. Pending official report CXR per radiologist Radiology Interpretation Completed By: Radiologist Summary of Radiographic Findings: NO ACTIVE CARDIOPULMONARY DISEASE. ED physician has reviewed this imaging report. - EKG 0907 Cardiac Rate: NL - 78 BPM EKG Rhythm: Sinus Rhythm Summary of EKG Findings: Sinus rhythm 78 BPM. No STEMI. ED physician has reviewed and interpreted this EKG. Re-Evaluation - Re-Evaluation First Eval Re-Evaluation Time: 10:33 Change: Improved Comment: patient agrees to discharge Flu Symptom Course/Dx - Course Course Of Treatment: 24 year old F arriving via private car complains of shortness of breath x5 days, and fever 103F, nausea/vomiting/diarrhea, fatigue, light headedness x2 days. Patient was seen at [facility] on Thursday where she had nebulizer treatment which did not help, and she did not have CXR or fluids, and was discharged home with inhaler and steroids which have not helped. Patient was instructed to go to the ED if she wasn't better. Patient denies chills, erythema of eyes, sore throat, chest pain, cough, abdominal pain , dysuria, hematuria, myalgia, edema, pain or swelling in bilateral lower extremities, rash, or dizziness. 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 Upon exam, the patient has diminished breath sounds. Bloodwork results with no significant abnormalities except for Hgb 11.4, Hct 34. An EKG shows sinus rhythm 78 BPM and no STEMI. CXR shows per radiologist: NO ACTIVE CARDIOPULMONARY DISEASE. In the ED course , the patient was given albuterol and normal saline fluids. Influenza A and B are negative. Patient will be discharged home with follow up from [facility] in 3-5 days. Patient was instructed to return to Emergency Department for new or worsening symptoms. Patient understands and is agreeable to this plan. - Diagnoses Provider Diagnoses: Acute gastroenteritis, URI (upper respiratory infection), Asthma exacerbation Discharge ED - Sign-Out/Discharge Documenting (check all that apply): Patient Departure - Discharge Plan Condition: Stable Disposition: HOME Patient Education Materials: Asthma (ED), Upper Respiratory Infection (ED), Gastroenteritis (ED) Forms: *Work Release Referrals: [facility] [Outside] - 3 Days Additional Instructions: Follow up with [facility] in 3-5 days. Return to the Emergency Department for new or worsening symptoms. - Attestation Statements Document Initiated by Scribe: Yes Documenting Scribe: Mounika Scott Provider For Whom Scribe is Documenting (Include Credential): Derik Bustillo MD Scribe Attestation: Mounika Gilbert, scribed for Derik Bustillo MD on 06/02/19 at 1033.
[2019-06-02] MEDS ORDERED: NS 0.9% 1000 ML** 1,000 ML IV ONE (08:17)
[2019-06-02] MEDS ORDERED: Albuterol/Ipratropium NEB.SOL* Albuterol 2.5 MG/Ipratropium 0.5 MG 3 ML INH ONE (08:17)
[2019-06-02 09:01] LABS: ABS Eosinophils 0.1 10^3/ul (0-0.6); ABS Lymphocytes 1.3 10^3/ul (1.0-4.8); ABS Monocytes 0.4 10^3/ul (0-0.8); ABS Neutrophils 4.4 10^3/ul (1.5-7.7); Eosinophil % 2.1 %; Hematocrit 34 % (35-47); Hemoglobin 11.4 g/dL (12.0-16.0); Lymphocyte % 20.1 %; Mean Corpuscular HGB Conc 34 g/dL (31-36); Mean Corpuscular Hemoglobin 28 pg (27-31); Mean Corpuscular Volume 83 fL (80-97); Mean Platelet Volume 8.6 fL (7.4-10.4); Platelet Count 206 10^3/uL (150-450); Red Blood Count 4.11 10^6 /uL (3.70-4.87); Red Cell Distribution Width 13 % (10-15); White Blood Count 6.3 10^3/uL (3.5-10.8)
[2019-06-02 09:10] LABS: Activated Partial Thrombo Time 33.8 seconds (26.0-38.0); INR 0.99 (0.82-1.09)
[2019-06-02 09:19] LABS: Albumin/Globulin Ratio 1.3 (1-3); BUN/Creatinine Ratio 9.4 (8-20); Calcium 8.8 mg/dL (8.6-10.3); EGFR African American 98.6 (>60); EGFR Non-African American 81.5 (>60); Globulin 3.2 g/dL (2-4); Potassium 4.1 mmol/L (3.5-5.0); Total Bilirubin 0.3 mg/dL (0.2-1.0); Total Protein 7.2 g/dL (6.4-8.9)
[2019-06-02 10:16] LABS: Influenza A Molecular Negative (Negative); Influenza B Molecular Negative (Negative)
[2019-06-02] MEDS ORDERED: Ondansetron ODT TAB* 4 MG PO ONE (10:30)
[2019-06-02 11:01] VITALS: BP 118/82
== END 2019-06-02 10:59 | disposition home or self-care (01) ==
LOC: ED 07:29
DX: K52.9 Noninfective gastroenteritis and colitis, unspecified (principal); J06.9 Acute upper respiratory infection, unspecified; J45.901 Unspecified asthma with (acute) exacerbation; F41.9 Anxiety disorder, unspecified; F32.9 Major depressive disorder, single episode, unspecified; Z88.1 Allergy status to other antibiotic agents
CPT/HCPCS: 36415; 71045; 80053; 83605; 84484; 85025; 85610; 85730; 87040; 93005; 96360; 99282; A9270-GY

== ENCOUNTER 2019-06-28 14:15 | Emergency (ER) | payer BC, MEDICAID ==
[2019-06-28 15:24] VITALS: BP 120/68
== END 2019-06-28 16:18 | disposition left against medical advice (07) ==
LOC: UCEAST 14:15
DX: Z53.21 Procedure and treatment not carried out due to patient leaving prior to being seen by health care provider (principal)